=== PATIENT | male | born 1950 | race Caucasian/White ===

== ENCOUNTER → 2016-03-22 | Outpatient (CLI) | payer OTHER ==
[~2016-03-22] MED LIST: ACCUNEB0.63 MG/3 INH; ACETAMINOPHEN-1 EAC1 PO; ACETAMINOPHEN325 M1 PO; ADVAIR 500-501 EACH INH; ALBUTEROL INH INH; ALBUTEROL NEB; ALBUTEROL2.5 MG/0.1 INH; ALBUTEROL2.5 MG/3 M INH; ALBUTEROL2.5 MG/31 INH; ALENDRONATE SOD70 MG PO; ALLOPURINOL 10100 M1 PO; ALLOPURINOL 30300 M1 PO; ALLOPURINOL 30300 M3 PO; ASMANEX INH; ASMANEX0.24 G1 IH; ASMANEX220 MC2 IH; AUGMENTIN 875-1 EACH PO; AUGMENTIN 875875 MG PO; CALCIUM 600 +1 EAC1 PO; CALCIUM OR; CARDIZEM CD 18180 M3 PO; CARDIZEM CD180 MG PO; CARDIZEM CD360 MG PO; CHERATUSSIN AC S5 ML PO; CIPRO OR; CIPROFLOXACIN500 M3 PO; CLARITIN10 MG PO; COLACE100 MG PO; COUMADIN 10MG T10 M1 OR; COUMADIN 10MG T10 M1 PO; COUMADIN 1MG TAB1 M1 PO; COUMADIN 2 MG TA2 M1 PO; COUMADIN 3 MG TA3 MG PO; COUMADIN 5 MG TA5 M1 OR; COUMADIN OR; COUMADIN PO; CYCLOBENZAPRINE10 MG PO; DALIRESP500 MCG PO; DILTIAZEM 24HR240 MG PO; DILTIAZEM ER240 M1 PO; ECONAZOLE TP; ELEMENTAL CALC600 MG PO; EPIPEN 2-P0.3 MG/0.3 IM; EPIPEN0.3 MG/0.3; FIBERCON CHEWA625 MG PO; FIBERCON625 M1 PO; FLAGYL500 MG PO; FLEXERIL PO; FLONASE16 GM NASAL; FOSAMAX 70 MG T70 M1 PO; FOSAMAX 70 MG T70 MG PO; FUROSEMIDE 20 M20 M1 PO; FUROSEMIDE 40 M40 M1 PO; GENTAMICIN 0.1%15 G2; HYDROCODON-ACE1 EAC8 PO; HYDROCODONE-AP1 EAC6 PO; HYDROCODONE-APA1 TA1 PO; IBUPROFEN 200200 M1 PO; JANTOVEN1 MG PO; K-DUR 20 MEQ T20 MEQ PO; K-DUR10 ME1 PO; KEFLEX500 MG PO; KETOCONAZOLE60 GM; KLOR-CON 10 ER10 MEQ PO; KLOR-CON 1010 MEQ PO; LASIX 20 MG TAB20 MG PO; LASIX 40 MG TAB40 M1 PO; LASIX 40 MG TAB40 M2 PO; LEVAQUIN 500 M500 M2 PO; LEVAQUIN 750 M750 MG PO; LOVENOX SC; LOVENOX SQ; METFORMIN HCL500 MG PO; MIRALAX17 GM PO; MUCINEX TA600 MG/TA1 PO; MUCINEX600 MG PO; MUCUS RELIEF C400 MG PO; MUCUS RELIEF600 MG PO; NORCO 5-325 TA1 EACH PO; NOVOLIN N100 UNIT/3 SUBQ; NOVOLOG100 UNIT/1 SUBQ; NYSTATIN 1100000 U/M SW&SWALLOW; NYSTATIN1 EA10 TOP; OMEPRAZOLE20 M2 PO; OXYCODONE HCL 55 MG PO; PERCOCET; PERCOCET 5-3251 EACH PO; POTASSIUM20 OR; POTASSIUM20 PO; PREDNISONE 10 M10 M1 PO; PREDNISONE 10 M10 MG PO; PREDNISONE 20 M20 M1 PO; PREDNISONE 20 M20 MG PO; PREDNISONE 5 MG5 M1 PO; PREDNISONE OR; PREVACID 30MG C30 M1 PO; PROAIR HFA8.5 GM INH; PROVENTIL HFA6.7 G1 IH; PROVENTIL HFA6.7 G1 INH; QVAR HFA 880 MCG/UN1; QVAR HFA 880 MCG/UN1 INH; ROXICODONE5 M2 PO; SANTYL OINTMENT30 G1; SENNA8.6 MG PO; SINGULAIR 10 MG10 M1 PO; SPIRIVA INH; SPIRIVA18 MCG INH; SYMBICORT160 MCG/4. INH; TAMSULOSIN HCL0.4 M1 PO; TAMSULOSIN HCL0.4 MG PO; TERBINAFINE HC250 MG PO; THEO-24300 MG PO; THEOPHYLLINE S300 MG PO; TRAMADOL 50 MG50 MG PO; UNIPHYL400 MG PO; VITAMIN D 5050000 I1 PO; VITAMIN D1000 UNI1 PO; XARELTO20 MG PO; XOLAIR; XOLAIR SUBQ; ZOFRAN ODT4 MG PO; ZPAK PO; xolair IJ
--- NOTE | ~2016-03-22 | S ---
[facility] [place] [address] SURGICAL PATH RPT PROCEDURE Name: ROOSEVELT CASEY JR Room #: REG BASILIO Aiken#: [id number] Admission: 03/22/16 Date of : 52 Discharge: Report #: [id number] Path Case #: [id number] PATHOLOGY REPORT COLLECTION DATE: 03/22/2016 RECEIVED DATE: 03/22/2016 SUBMITTING PHYS: Dr. Phil Alex OTHER PHYS: Dr. Henrry Rayo SPECIMEN(S) RECEIVED: A.Polyp at distal transverse B.Polyp at 60 cm C.Polyp at 50 cm x2 D.Polyp at 40 cm * * * * * * * * * * * * FINAL DIAGNOSIS: A. Polyp, distal transverse, endoscopic biopsy: - Tubular adenoma. - Negative for high-grade dysplasia. B. Polyp, at 60 cm, endoscopic biopsy: - Hyperplastic polyp. - Negative for dysplasia. C. Polyp x 2, at 50 cm, endoscopic biopsy: - Multiple fragments showing tubular adenoma. - Negative for high-grade dysplasia. D. Polyp, at 40 cm, endoscopic biopsy: - Tubular adenoma. - Negative for high-grade dysplasia. (IUV:mgr; d/t: 03/23/16) PATHOLOGIST: Gracie Maldonado M.D. REPORT ELECTRONICALLY SIGNED BY: Gracie Maldonado M.D. DATE/TIME: 03/23/2016 16:45 * * * * * * * * * * * * GROSS PATHOLOGY: A. Received in formalin labeled "Roosevelt Casey Jr., polyp at distal transverse," is a segment of hernandez soft tissue measuring 0.4 cm in maximum dimension. The specimen is submitted entirely in cassette A1. B. Received in formalin labeled "Roosevelt Casey Jr., polyp at 60 cm," are two segments of hernandez soft tissue measuring 0.6 x 0.5 x 0.1 cm in aggregate dimensions and ranging from 0.3 to 0.5 cm in maximum dimension. The specimen is submitted entirely in cassette B1. C. Received in formalin labeled "Roosevelt Casey Jr., polyp at 50 cm 2," are three segments of hernandez soft tissue measuring 0.6 x 0.[address] [address] SURGICAL PATH RPT PROCEDURE Name: ROOSEVELT CASEY Room #: REG [facility]#: [id number] Admission: 03/22/16 Date of : 52 Discharge: Report #: [id number] Path Case #: [id number] cm in aggregate dimensions and ranging from 0.2 to 0.5 cm in maximum dimension. The specimen is submitted entirely in cassette C1. D. Received in formalin labeled "Roosevelt Casey Jr., polyp at 40 cm," is a segment of hernandez soft tissue measuring 0.5 cm in maximum dimension. The specimen is submitted entirely in cassette D1. (CAA; 03/22/2016) CLINICAL HISTORY: History of polyps INITIAL CPT CODE(S): A; 49463 B; 51861 C; 57864 D; 74178 Professional services performed by [facility] at [facility] [address], [place] [address] Technical services performed by [facility] at [address] [place] [address], [address], [place] [address]. [facility] [address] [place] [address] PHONE: [phone] DIRECTOR: Adriel Santillan M.D. * * * END OF REPORT * * *
--- NOTE | ~2016-03-22 | P ---
[facility] [place] [address] PROCEDURE REPORT Name: OTF PEÑA [id number] Admission: 03/22/16 Attend Phys: Phil Alex MD Discharge: Date of : 52 Report #: [id number] THIS REPORT FOR: //name// CC: Phli Rayo MD BRIEF HISTORY: The patient is a 65-year-old male with history of multiple colon adenomas. Last colonoscopy was about a year ago, at which time multiple small adenomas were removed. It is noted that he did have a tubulovillous adenoma removed at 40 cm in November 2013, with multifocal high-grade dysplasia. PREOPERATIVE DIAGNOSES: History of colon polyps and advanced adenoma with multifocal high-grade dysplasia. POSTOPERATIVE DIAGNOSES: 1. Diminutive polyp in distal transverse colon. 2. Diminutive polyp at 60 cm. 3. Diminutive polyps times 2 at 50 cm. 4. Diminutive polyp at 40 cm. 5. Moderate diverticulosis coli, greater left colon than right colon. 6. Internal hemorrhoids. 7. Old tattoos at 40 and 60 cm. MEDICATIONS: Deep sedation with propofol per anesthesia. SPECIMENS: 1. Diminutive polyp, transverse colon. 2. Diminutive polyps, 60 cm. 3. Diminutive polyps times 2 at 50 cm. 4. Diminutive polyp at 40 cm. ESTIMATED BLOOD LOSS: 3 mL. PROCEDURE: Colonoscopy to cecum and terminal ileum with biopsy. FINDINGS: Prior to propofol sedation, procedure of colonoscopy discussed with the patient as well as potential risks, benefits, and complications. He indicates he understands and desires to proceed. With the patient in left lateral decubitus position, digital examination was completed, which revealed no abnormalities. Subsequently, the [place] video colonoscope was introduced into the rectum, advanced under direct vision to the cecum. Done with some difficulty tortuous redundant colon. Cecum was reached, identified by the ileocecal valve and the appendiceal orifice. I was able to visualize the distal segment of terminal ileum, which was inspected and noted to be unremarkable. At that point, the scope was slowly withdrawn and [facility] [address] [place] [address] PROCEDURE REPORT Name: OTF PEÑA Room #: REG [facility]#: [id number] Admission: 03/22/16 Attend Phys: Phil Alex MD Discharge: Date of : 52 Report #: [id number] careful circumferential views obtained. Upon slow withdrawal of the scope, the prep was noted to be good. The mucosa was within normal limits, normal vascular pattern, and normal light reflex. As we withdrew the scope, there were a few scattered diverticula in proximal colon, but no endoscopic evidence of diverticulitis. In the distal transverse colon, a diminutive polyp was seen and removed by biopsy. Scope was further withdrawn and tattoo parker were found at 60 cm. No residual polyp was seen at the tattoo sites. As we withdrew the scope, diminutive polyp was seen. However, this diminutive polyp was felt to be was not in the vicinity of the tattoos and was felt to represent new polyps rather than residual polyps. Scope was further withdrawn and at 50 cm, 2 diminutive polyps were seen and removed by biopsy. At 40 cm, another tattoo oniel was seen. In that region, another diminutive polyp was seen and removed by biopsy. Once again, this polyp was not associated with a tattoo and felt to represent a new polypoid lesion. The scope was further withdrawn and there was noted to be moderately severe diverticular disease without endoscopic evidence of diverticulitis. Scope was withdrawn in the rectum. Upon retroflexion, small hemorrhoids and tags were seen. Scope was withdrawn. The patient tolerated the procedure well. CONDITION OF THE PATIENT UPON DISCHARGE: Following procedure, the patient drowsy, aroused, conversant and will be discharged home when fully ambulatory. INSTRUCTIONS TO THE PATIENT AND FAMILY AT THE TIME OF DISCHARGE: Multiple polyps identified and removed as described above. We will follow up on the path and make further recommendations. However, at this point, I think it would be reasonable have him return in 2 years due to a large number of adenomas and his advance adenoma. In addition, there was no residual polyp identified at the site in particular the tattoo site at 40 cm. He will return to care of Dr. Henrry Rayo, return to see me as needed. Last colonoscopy was 1 year ago. <ELECTRONICALLY SIGNED> By: Phil Alex MD 03/25/16 1104 0934 1006 Phil Alex MD /nt
== END | disposition home or self-care (01) ==
LOC: GI 03:08
DX: D12.3 Benign neoplasm of transverse colon (principal); D12.4 Benign neoplasm of descending colon; D12.5 Benign neoplasm of sigmoid colon; K57.30 Diverticulosis of large intestine without perforation or abscess without bleeding; K64.8 Other hemorrhoids
CPT/HCPCS: 62110; 62900

== ENCOUNTER 2016-08-06 19:17 | Inpatient (IN) | payer OTHER ==
[~2016-08-06] VITALS: Ht 180.3 cm; Wt 144.2 kg
--- NOTE | ~2016-08-06 | EKG ---
[place] [address] [facility] [place] [address] ELECTROCARDIOGRAM REPORT Name: OTF PEÑA Room #: 307-P ADM IN M.R.#: [id number] Admission: 08/06/16 Attend Phys: Vicki Nevarez Discharge: Date of : 52 Report #: [id number] THIS REPORT FOR: //name// [facility] ED Test Date: 2016-08-06 Test Time: 19:43:24 Pat Name: OTF PEÑA Department: Room: [facility] Gender: M Bicycle Service Technician: [id number] : 1950 Requested By: Siddhartha Parham Order Number: [id number] MD: Alexander West Measurements Intervals [place] Rate: 97 P: 55 VA: 167 QRS: -72 QRSD: 155 T: 34 QT: 380 QTc: 483 Interpretive Statements Sinus rhythm RBBB and LAFB Baseline wander in lead(s) V1 Compared to ECG 01/25/2015 15:41:24 No significant change was found Electronically Signed On 08-07-2016 8:09:23 CDT by Alexander West [email or web address] <ELECTRONICALLY SIGNED> By: Alexander West MD, [facility] 08/07/16 0809 42 42 Alexander West MD, [facility] /EPI
[~2016-08-06 19:17] MED LIST changes: +ECONAZOLE 1% CR30 G1 TOP
[2016-08-06 19:18] VITALS: BP 155/92
[2016-08-06] MEDS ORDERED: AZITHROMYCIN 2250 MG PO (19:23)
[2016-08-06] MEDS ORDERED: PULMICORT0.5 MG/22 INH (19:24)
[2016-08-06] MEDS ORDERED: POTASSIUM20 PO (19:26)
[2016-08-06 19:50] LABS: HEMATOCRIT 42.3 % (42.0-52.0); HEMOGLOBIN 14.3 gm/dL (14.0-18.0); MCH 29.4 pg (26.0-34.0); MCHC 33.7 g/dL (28.0-37.0); MCV 87.1 fL (80.0-100.0); PLATELET COUNT 204 thou/uL (150-400); RBC 4.86 mil/uL (4.50-6.00); RDW 15.3 % (10.5-14.5); WBC 10.8 thou/uL (4.0-11.0)
[2016-08-06 19:51] LABS: MANUAL DIFF YES
[2016-08-06 20:00] LABS: CALCIUM 9.2 mg/dL (8.5-10.1); CREATININE 0.7 mg/dL (0.7-1.3); POTASSIUM 4.2 mmol/L (3.5-5.1)
[2016-08-06 20:03] LABS: ABG SAMPLE TYPE ARTERIAL; BE(vivo) 3.4 mmol/L (-2 to +3); HCO3 28.9 mmol/L (22.0-26.0); LACTATE 1.27 mmol/L (0.5-2.0); O2(CT) 20.9 mL/dL (15.0-23.0); O2Hb 94.7 % (92.0-98.0); PCO2 46.8 mmHg (35.0-45.0); PO2 79.6 mmHg (80.0-100.0); pH 7.409 (7.360-7.450); sO2 95.8 % (92.0-98.0); tCO2 30.4 mmol/L (24.0-30.0)
[2016-08-06 20:04] LABS: ALBUMIN 3.3 g/dL (3.4-5.0); DIRECT BILIRUBIN 0.1 mg/dL (<0.1-0.3); TOTAL BILIRUBIN 0.6 mg/dL (<0.1-1.0); TOTAL PROTEIN 6.5 g/dL (6.4-8.2)
[2016-08-06 20:05] LABS: STICK SITE R.RADIAL
[2016-08-06 20:13] LABS: NT-PRO BRAIN NAT PEPTIDE 28 pg/mL (<300); TROPONIN-I < 0.04 ng/mL (<0.04-0.07)
[2016-08-06 20:24] LABS: ABSOLUTE NEUTROPHILS 9.3 thou/uL (1.4-8.2); ANISOCYTOSIS 1+; TOTAL CELL COUNT 100
[2016-08-06 21:26] VITALS: BP 143/82
[2016-08-06 22:30] VITALS: BP 123/90
[2016-08-07] MEDS ORDERED: METFORMIN HCL500 MG PO (02:01)
[2016-08-07 03:05] VITALS: BP 119/81
[2016-08-07 07:45] VITALS: BP 140/75
[2016-08-07 16:00] VITALS: BP 129/74
[2016-08-07 20:00] VITALS: BP 134/71
[2016-08-08 04:00] VITALS: BP 150/92
[2016-08-08 07:04] LABS: ALBUMIN 2.9 g/dL (3.4-5.0); CALCIUM 8.7 mg/dL (8.5-10.1); CREATININE 0.6 mg/dL (0.7-1.3); MAGNESIUM 1.8 mg/dL (1.8-2.4); POTASSIUM 3.7 mmol/L (3.5-5.1); TOTAL BILIRUBIN 0.4 mg/dL (<0.1-1.0); TOTAL PROTEIN 6.5 g/dL (6.4-8.2)
[2016-08-08 07:59] VITALS: BP 155/81
[2016-08-08] MEDS ORDERED: FLUCONAZOLE 10100 MG PO (08:42)
[2016-08-08 09:58] VITALS: BP 155/81
== END 2016-08-08 14:00 | disposition home or self-care (01) | DRG 392 ==
LOC: ER 19:17 → EROBS 20:51 → 3N 20:51
PROVIDERS: Hospitalist; Nurse Practitioner
DX: K52.9 Noninfective gastroenteritis and colitis, unspecified (principal); J44.1 Chronic obstructive pulmonary disease with (acute) exacerbation; J96.11 Chronic respiratory failure with hypoxia; Z68.41 Body mass index [BMI] 40.0-44.9, adult; I10 Essential (primary) hypertension; M19.90 Unspecified osteoarthritis, unspecified site; M79.3 Panniculitis, unspecified; E11.9 Type 2 diabetes mellitus without complications; E86.1 Hypovolemia; E66.01 Morbid (severe) obesity due to excess calories; Z82.5 Family history of asthma and other chronic lower respiratory diseases; Z90.49 Acquired absence of other specified parts of digestive tract; Z86.711 Personal history of pulmonary embolism; Z87.01 Personal history of pneumonia (recurrent); Z98.42 Cataract extraction status, left eye; Z87.81 Personal history of (healed) traumatic fracture; Z79.899 Other long term (current) drug therapy
CPT/HCPCS: 10096

== ENCOUNTER 2017-02-09 07:52 | Inpatient (IN) | payer OTHER ==
[~2017-02-09] VITALS: Ht 9 cm; Wt 152.0 kg
[2017-02-09] VITALS (12 sets, daily range): BP systolic 118–159; BP diastolic 68–93
--- NOTE | ~2017-02-09 | HC ---
[facility] [place] [address] CONSULTATION Name: OTF PEÑA Room #: 245-P ADM IN M.R.#: [id number] Admission: 02/09/17 Attend Phys: Vicki Nevarez Discharge: Date of : 52 Report #: [id number] THIS REPORT FOR: //name// CC: Vicki Rayo DATE OF SERVICE: 02/09/2017 ATTENDING PHYSICIAN: Vicki Nevarez MD CONSULTING PHYSICIAN: Henrry Rayo MD REASON FOR CONSULTATION: Abdominal pain. HISTORY OF PRESENT ILLNESS: This is a 66-year-old male patient known to our service from previous bowel obstructions. He was seen in the [place] emergency room with complaints of abdominal pain, nausea, vomiting and diarrhea starting this morning. He underwent a CT of the abdomen and pelvis, which revealed diffuse fluid throughout the small-bowel with dilatation of the distal small bowel measuring 3.7 cm in size, consistent with a distal mechanical small-bowel obstruction. CT scan approximately 6 months ago showed this same bowel to measure 2.5 cm in size. Fluid also filled the ascending and transverse colon. In addition to this, marked edema was seen over the lower anterior right abdominal wall soft tissue, likely cellulitis, no hernia was identified. I was called to see the patient when he had been admitted to the regular floor; however, he had some respiratory difficulty and was transferred to the intensive care unit where he is now being seen. A nasogastric tube has been placed with drainage of 250 mL of enteric content. The patient reports feeling slightly better since placement of the tube. PAST MEDICAL HISTORY: Significant for COPD, asthma, history of DVT and bilateral pulmonary emboli, status post IVC filter placement, history of hypertension, gout, type 2 diabetes mellitus, morbid obesity, previous bowel obstructions. PAST SURGICAL HISTORY: Includes panniculectomy, open primary ventral hernia repair in 2005, laparoscopic cholecystectomy in 2008, repair of recurrent incisional ventral hernia in 2008, and laparoscopic repair of recurrent incisional ventral hernia with [employer] Mesh in 2009. HOME MEDICATIONS: Include Glucophage, Flonase, guaifenesin, alendronate, vitamin D, Zyloprim, prednisone 10 mg, budesonide, K-Dur, albuterol, ProAir, Xarelto, theophylline, Spiriva, diltiazem, Lasix, hydrocodone 7.5 mg, and Diflucan. Please see electronic medical record for dosing details. ALLERGIES: No known drug allergies. [address] [address] CONSULTATION Name: OTF PEÑA Room #: 245-P [facility] IN .R.#: [id number] Admission: 02/09/17 Attend Phys: Vicki Nevarez Discharge: Date of : 52 Report #: [id number] FAMILY HISTORY: Significant for COPD, otherwise noncontributory to this hospitalization. SOCIAL HISTORY: The patient denies use of tobacco or illicit drugs. He drinks alcohol socially and lives at home alone. REVIEW OF SYSTEMS: As per history of present illness, in addition, GENERAL: The patient denies unintentional weight loss. Denies fever or chills. HEENT: Denies changes in taste, vision, hearing, or smell. RESPIRATORY: Reports shortness of breath, has a history of COPD and asthma. CARDIOVASCULAR: Denies chest pain or palpitations. GASTROINTESTINAL: As per history of present illness. Denies bright red blood per rectum. GENITOURINARY: Denies dysuria, urgency, or increased urinary frequency. Denies hematuria. MUSCULOSKELETAL: Denies myalgia. Complains of arthralgia and arthritis. NEUROLOGIC: Denies headaches, numbness, or tingling. PSYCHIATRIC: Denies depression, anxiety or suicidal ideations. SKIN AND INTEGUMENTARY: Denies new skin lesions, rashes, or moles. ENDOCRINE: Denies polydipsia, polyuria, heat, or cold intolerance. HEMATOLOGIC: Reports easy bleeding and bruising while on Xarelto. All other review of systems is negative. PHYSICAL EXAMINATION: VITAL SIGNS: Temperature 99.6, T-max 102.3 at noon today, most recent blood pressure 127/88, pulse 109, respirations 26, all at noon today. GENERAL: This is a super morbidly obese 66-year-old male patient, in no acute distress. HEENT: Atraumatic, normocephalic with moist mucosal membranes. A nasogastric tube is present. He has no scleral icterus. NECK: Supple, no appreciable lymphadenopathy. Trachea is midline. CHEST: Coarse bilaterally. CARDIOVASCULAR: Sinus tachycardia. S1 and S2. ABDOMEN: Obese, soft and tender to palpation with no rebound or guarding. He has a slightly increased warmth overlying the right abdomen. No appreciable hernias. Surgical scars are well healed. GENITOURINARY: Normal external male genitalia. EXTREMITIES: No clubbing or cyanosis. NEUROLOGIC: Cranial nerves 2-12 are grossly intact. PSYCHIATRIC: Normal mood and affect. SKIN AND INTEGUMENTARY: No rashes or significant lesions are seen. LABORATORY DATA: CBC from earlier today shows a white blood cell count of 11.9 (13.7 at admission), hemoglobin 13.2, hematocrit 41.7, and platelets 195. Admission lactate was 2.1, down to 0.5. Electrolytes show sodium 143, potassium [address] [address] CONSULTATION Name: OTF PEÑA Room #: 245-P ADM IN .R.#: [id number] Admission: 02/09/17 Attend Phys: Vicki Nevarez Discharge: Date of : 52 Report #: [id number] 3.7, chloride 105, CO2 of 31, BUN 22, creatinine 0.8 and glucose 111 with normal liver function tests and a normal lipase. INR was 1.1. RADIOLOGIC STUDIES: CT of the abdomen and pelvis with IV contrast, findings are as noted above. Additional findings on his CT scan are dilatation of the intrahepatic biliary tree and extrahepatic bile ducts to 2.2 cm with the distal duct gradually diminishing in caliber to normal size at the ampulla. IMPRESSION AND PLAN: This is a 66-year-old super morbidly obese male patient with a history of chronic obstructive pulmonary disease, hypertension and venous thromboembolism with bilateral pulmonary emboli who has abdominal pain, nausea, vomiting and diarrhea. His radiographic studies showed changes consistent with a distal mechanical small-bowel obstruction. We discussed the pathophysiology and natural history of small-bowel obstructions as well as treatment alternatives and surgical options. The patient would benefit from ongoing conservative treatment with nasogastric decompression, bowel rest, and IV fluid resuscitation. He will be followed with serial abdominal exams as well as labs and x-rays as necessary. The CT report recommended abdominal ultrasound for evaluation of the biliary tree; however, the patient has undergone previous cholecystectomy and he may benefit from an MRCP or CT with pancreatic protocol to further evaluate his biliary tree. Continue current supportive care and we will follow along with you. I sincerely appreciate the opportunity to participate in the care of this patient and we will leave further recommendations and orders in the electronic medical record as appropriate. Thank you very much. <ELECTRONICALLY SIGNED> By: Doyle Aaron MD, FACS 02/10/17 1339 1746 1914 Doyle Aaron MD, FACS /nt
--- NOTE | ~2017-02-09 | HC ---
[facility] [place] [address] CONSULTATION Name: OTF PEÑA Room #: 213-P ADM IN M.R.#: [id number] Admission: 02/09/17 Attend Phys: Vicki Nevarez Discharge: Date of : 51 Report #: [id number] THIS REPORT FOR: //name// CC: Vicki Caldwellhen Girma DATE OF SERVICE: 02/13/2017 HISTORY OF PRESENT ILLNESS: The patient is a 66-year-old white male, originally admitted with vomiting and diarrhea. He was noted to have an adynamic ileus, respiratory failure acute on chronic with cellulitis, panniculitis. He has been followed by his Surgery without intervention. He had an NG tube that has been removed. He was noted to have a small bowel obstruction. He had an asthma with exacerbation that is improving and his acute on chronic hypoxic hypercapnic respiratory failure is improving as well. He was diagnosed with gastroenteritis. He has medical complexity with generalized debilitation and we are seeing him in rehabilitation medicine consultation. PAST MEDICAL HISTORY: Includes morbid obesity, hypertension, severe bronchitis, COPD 3 liters at home, IVC filter, laparoscopic cholecystectomy, bilateral pulmonary emboli, pneumonia, and torn right rotator cuff without surgery. MEDICATIONS: Please see the full medication listing. ALLERGIES: No known drug allergies. HABITS: No history of tobacco or alcohol abuse. SOCIAL HISTORY: House alone, has a ramp, uses a walker, uses his oxygen, has a sister and niece that are involved with cleaning. He goes out into the community, where he typically takes one of the scooters when he is in a store. REVIEW OF SYSTEMS: No current complaints of chest pain, shortness of breath, or abdominal discomfort. No focal extremity pain complaints. PHYSICAL EXAMINATION: GENERAL: A 66-year-old morbidly obese, pleasant white male, no obvious distress. VITAL SIGNS: Temperature 97.4, pulse 65, respirations 18, blood pressure 128/76. Last recorded height was 5 feet 9 inches, weight 335 pounds. HEENT: Appeared to be benign. EXTREMITIES: Functional range of motion of both upper extremities with strength grade 4/5. Lower extremities, no focal calf swelling, functional range of motion with strength grade 4- to 3+. His transfers, sit to stand is contact guard. He ambulated 5 steps contact guard with a front-wheeled walker. [address] [address] CONSULTATION Name: MARIANAOTF BASHIR Room #: 213-P [facility] IN M.R.#: [id number] Admission: 02/09/17 Attend Phys: Vicki Nevarez Discharge: Date of : 52 Report #: [id number] ASSESSMENT: A 66-year-old white male with the following problem list: 1. Small bowel obstruction, being managed conservatively. 2. Acute on chronic hypoxic hypercapnic respiratory failure. 3. Asthma exacerbation. 4. Gastroenteritis. 5. History of deep venous thrombosis, status post IVC filter. 6. History of atrial fibrillation. 7. Morbid obesity. 8. Cellulitis with ____. PLAN: He is hoping to return directly home. I encouraged him to continue working in therapies to try to further improve his strength and endurance. He will certainly need at least home health care. At this point, we will follow along with you regarding his rehab therapy needs as he further medically stabilizes. Thank you for asking us to assist in this patient's care. By: 1436 2326 Sim Vicente MD /
--- NOTE | ~2017-02-09 | EKG ---
[address] [place] [address] ELECTROCARDIOGRAM REPORT Name: OTF PEÑA Room #: 245- ADM IN M.R.#: [id number] Admission: 02/09/17 Attend Phys: Vicki Nevarez Discharge: Date of : 52 Report #: [id number] THIS REPORT FOR: //name// [facility] Test Date: 2017-02-10 Test Time: 17:05:24 Pat Name: OTF PEÑA Department: Room: [facility] Gender: M Cable Dispatcher: [facility] : 1950 Requested By: Ramu Henson Order Number: [id number] MD: Alfredo Stanford Measurements Intervals [place] Rate: 97 P: 59 VA: 161 QRS: -72 QRSD: 158 T: 69 QT: 381 QTc: 484 Interpretive Statements Sinus rhythm RBBB and LAFB Probable left ventricular hypertrophy Baseline wander in lead(s) V1 Compared to ECG 10/25/2016 14:28:02 No significant changes Electronically Signed On 02-10-2017 18:03:10 PAGE TECHNICIAN by Alfredo Stanford [email or web address] <ELECTRONICALLY SIGNED> By: Alfredo Stanford MD 02/10/17 1803 170 04 Alfredo Stanford MD /EPI
[~2017-02-09 07:52] MED LIST changes: +AZITHROMYCIN 2250 MG PO; +FLUCONAZOLE 10100 MG PO; +PULMICORT0.5 MG/22 INH; +VENTOLIN HFA 1818 GM INH
[2017-02-09 08:30] LABS: HEMATOCRIT 45.5 % (42.0-52.0); HEMOGLOBIN 14.6 gm/dL (14.0-18.0); MCH 28.5 pg (26.0-34.0); MCHC 32.1 g/dL (28.0-37.0); MCV 88.9 fL (80.0-100.0); RBC 5.11 mil/uL (4.50-6.00); RDW 15.3 % (10.5-14.5); WBC 13.7 thou/uL (4.0-11.0)
[2017-02-09 08:39] LABS: CALCIUM 9.4 mg/dL (8.5-10.1); CREATININE 0.8 mg/dL (0.7-1.3); POTASSIUM 3.7 mmol/L (3.5-5.1)
[2017-02-09 08:45] LABS: ALBUMIN 3.2 g/dL (3.4-5.0); TOTAL BILIRUBIN 0.6 mg/dL (<0.1-1.0); TOTAL PROTEIN 6.8 g/dL (6.4-8.2)
[2017-02-09 14:09] LABS: ABG SAMPLE TYPE ARTERIAL; BE(vivo) 1.7 mmol/L (-2 to +3); HCO3 28.7 mmol/L (22.0-26.0); LACTATE 1.41 mmol/L (0.5-2.0); O2(CT) 19.8 mL/dL (15.0-23.0); O2Hb 93.1 % (92.0-98.0); PCO2 54.4 mmHg (35.0-45.0); PO2 71.5 mmHg (80.0-100.0); sO2 93.2 % (92.0-98.0); tCO2 30.4 mmol/L (24.0-30.0)
[2017-02-09 14:11] LABS: STICK SITE L.RADIAL
[2017-02-09 17:09] LABS: HEMATOCRIT 41.7 % (42.0-52.0); HEMOGLOBIN 13.2 gm/dL (14.0-18.0); MCH 28.5 pg (26.0-34.0); MCHC 31.8 g/dL (28.0-37.0); MCV 89.7 fL (80.0-100.0); RBC 4.64 mil/uL (4.50-6.00); RDW 15.4 % (10.5-14.5); WBC 11.9 thou/uL (4.0-11.0)
[2017-02-09 17:22] LABS: INR 1.1; PROTIME 11.7 Seconds (9.3-11.4)
[2017-02-09 18:14] LABS: URINE BILIRUBIN 1+ (Negative); URINE BLOOD 3+ (Negative); URINE GLUCOSE-RANDOM* NEGATIVE (Negative); URINE KETONES NEGATIVE (Negative); URINE PROTEIN (DIPSTICK) 2+ (Negative); URINE SPECIFIC GRAVITY 1.015 (1.003-1.035); URINE UROBILINOGEN 0.2 E.U./dl (0.2-1.0)
[2017-02-09 18:16] LABS: ICTOTEST (BILI CONFIRMATORY) Negative (Negative); URINE COLOR DARK YELLOW; URINE LEUKOCYTES-REFLEX TRACE (Negative)
[2017-02-09 18:22] LABS: CASTS None Seen /LPF (None Seen); CRYSTALS None Seen /LPF (None Seen); SQUAMOUS None Seen /LPF (0-3); URINE RBC >20 Many /HPF (0-2)
[2017-02-09 18:23] LABS: URINE WBC-REFLEX 0-5 Rare /HPF (0-5)
[2017-02-10] VITALS (23 sets, daily range): BP systolic 124–167; BP diastolic 55–95
[2017-02-10 05:14] LABS: ABG SAMPLE TYPE ARTERIAL; BE(vivo) 2.6 mmol/L (-2 to +3); LACTATE 0.72 mmol/L (0.5-2.0); O2(CT) 18.4 mL/dL (15.0-23.0); O2Hb 94.7 % (92.0-98.0); PCO2 58.6 mmHg (35.0-45.0); PO2 83.3 mmHg (80.0-100.0); sO2 95.3 % (92.0-98.0); tCO2 31.8 mmol/L (24.0-30.0)
[2017-02-10 05:15] LABS: STICK SITE L.RADIAL; pH 7.327 (7.360-7.450)
[2017-02-10 05:16] LABS: Pressure Support 6 cm H20
[2017-02-10 05:18] LABS: ABSOLUTE NEUTROPHILS 7.2 thou/uL (1.4-8.2); BASOPHILS 0.3 % (0.0-2.0); EOSINOPHILS 5.1 % (0.0-3.0); HEMATOCRIT 40.6 % (42.0-52.0); LYMPHOCYTES 10.7 % (24.0-44.0); MCH 28.8 pg (26.0-34.0); MCV 89.9 fL (80.0-100.0); MONOCYTES 10.5 % (1.0-8.0); PLATELET COUNT 178 thou/uL (150-400); POLYS 73.4 % (36.0-66.0); RBC 4.52 mil/uL (4.50-6.00); RDW 16.1 % (10.5-14.5); WBC 9.8 thou/uL (4.0-11.0)
[2017-02-10 05:22] LABS: MANUAL DIFF NO
[2017-02-10 05:33] LABS: ALBUMIN 2.4 g/dL (3.4-5.0); CALCIUM 7.7 mg/dL (8.5-10.1); CREATININE 0.6 mg/dL (0.7-1.3); POTASSIUM 3.5 mmol/L (3.5-5.1); TOTAL BILIRUBIN 0.7 mg/dL (<0.1-1.0); TOTAL PROTEIN 5.2 g/dL (6.4-8.2)
[2017-02-11] VITALS (22 sets, daily range): BP systolic 112–157; BP diastolic 66–92
[2017-02-11 05:32] LABS: HEMATOCRIT 42.2 % (42.0-52.0); HEMOGLOBIN 13.5 gm/dL (14.0-18.0); MANUAL DIFF YES; MCH 28.5 pg (26.0-34.0); PLATELET COUNT 174 thou/uL (150-400); RBC 4.74 mil/uL (4.50-6.00); RDW 15.5 % (10.5-14.5); WBC 8.8 thou/uL (4.0-11.0)
[2017-02-11 05:48] LABS: ALBUMIN 2.3 g/dL (3.4-5.0); CALCIUM 8.3 mg/dL (8.5-10.1); CREATININE 0.7 mg/dL (0.7-1.3); PHOSPHORUS 4.3 mg/dL (2.5-4.9)
[2017-02-11 06:07] LABS: ABSOLUTE NEUTROPHILS 8.1 thou/uL (1.4-8.2); ANISOCYTOSIS SLIGHT; TOTAL CELL COUNT 100
[2017-02-11 09:00] LABS: ABG SAMPLE TYPE ARTERIAL; BE(vivo) 1.9 mmol/L (-2 to +3); HCO3 30.1 mmol/L (22.0-26.0); PCO2 63.1 mmHg (35.0-45.0); PO2 86.4 mmHg (80.0-100.0); STICK SITE L.RADIAL; tCO2 32.1 mmol/L (24.0-30.0)
[2017-02-11 09:01] LABS: FIO2 35 %; LACTATE 1.33 mmol/L (0.5-2.0); Pressure Support 14 cm H20; sO2 95.3 % (92.0-98.0)
[2017-02-12] VITALS (17 sets, daily range): BP systolic 110–154; BP diastolic 66–94
[2017-02-12 05:09] LABS: HEMATOCRIT 38.5 % (42.0-52.0); HEMOGLOBIN 12.3 gm/dL (14.0-18.0); MCH 28.2 pg (26.0-34.0); MCHC 31.8 g/dL (28.0-37.0); MCV 88.5 fL (80.0-100.0); RBC 4.35 mil/uL (4.50-6.00); RDW 15.1 % (10.5-14.5); WBC 12.1 thou/uL (4.0-11.0)
[2017-02-12 05:25] LABS: ALBUMIN 2.2 g/dL (3.4-5.0); CREATININE 0.5 mg/dL (0.7-1.3); PHOSPHORUS 2.2 mg/dL (2.5-4.9); POTASSIUM 3.8 mmol/L (3.5-5.1)
[2017-02-12 23:08] LABS: INFLUENZA B Negative (Negative); METAPNEUMOVIRUS Negative (Negative)
[2017-02-13 00:13] VITALS: BP 130/77
[2017-02-13 03:15] VITALS: BP 138/91
[2017-02-13 07:59] VITALS: BP 130/86
[2017-02-13 11:10] VITALS: BP 128/76
[2017-02-13 15:20] VITALS: BP 133/72
[2017-02-13 20:15] VITALS: BP 140/75
[2017-02-14 04:00] VITALS: BP 102/58
[2017-02-14 08:25] VITALS: BP 146/92
[2017-02-14 10:50] VITALS: BP 146/92
[2017-02-14 11:31] VITALS: BP 138/83
[2017-02-14] MEDS ORDERED: NYAMYC15 GM TOP (12:53)
[2017-02-14] MEDS ORDERED: PEPCID20 MG PO (12:53)
[2017-02-14] MEDS ORDERED: NITROGLYCERIN0.4 MG SUBLING (12:53)
[2017-02-14] MEDS ORDERED: MIRALAX17 GM PO (12:53)
[2017-02-14] MEDS ORDERED: CEFPODOXIME PR200 M1 PO (13:04)
[2017-02-14 14:23] VITALS: BP 146/92
== END 2017-02-14 15:50 | disposition home health service (06) | DRG 871 ==
LOC: ER 07:52 → EROBS 10:25 → ICU 10:25 → 4S 12:29 → ICU 15:45 → 2N 02-12 20:29 → ENTRNSPT 02-14 15:38 → EDTRNSPTSTS 02-14 15:41 → 2N 02-14 15:50
PROVIDERS: Emergency Medicine; Hospitalist; Internal Medicine Pulmonary Disease
PROC: 02HV33Z Insertion of Infusion Device into Superior Vena Cava, Percutaneous Approach (ICD-10-PCS; principal; 2017-02-09)
PROC: 5A09357 Assistance with Respiratory Ventilation, Less than 24 Consecutive Hours, Continuous Positive Airway Pressure (ICD-10-PCS; 2017-02-11)
PROC: 5A09357 Assistance with Respiratory Ventilation, Less than 24 Consecutive Hours, Continuous Positive Airway Pressure (ICD-10-PCS; 2017-02-12)
PROC: 0D9670Z Drainage of Stomach with Drainage Device, Via Natural or Artificial Opening (ICD-10-PCS; 2017-02-14)
DX: A41.9 Sepsis, unspecified organism (principal); J18.9 Pneumonia, unspecified organism; J96.21 Acute and chronic respiratory failure with hypoxia; J96.22 Acute and chronic respiratory failure with hypercapnia; K56.609 Unspecified intestinal obstruction, unspecified as to partial versus complete obstruction; J44.0 Chronic obstructive pulmonary disease with (acute) lower respiratory infection; J45.901 Unspecified asthma with (acute) exacerbation; L03.90 Cellulitis, unspecified; J44.1 Chronic obstructive pulmonary disease with (acute) exacerbation; K56.7 Ileus, unspecified; K52.9 Noninfective gastroenteritis and colitis, unspecified; I10 Essential (primary) hypertension; M19.90 Unspecified osteoarthritis, unspecified site; E66.01 Morbid (severe) obesity due to excess calories; E11.9 Type 2 diabetes mellitus without complications; M10.9 Gout, unspecified; I48.91 Unspecified atrial fibrillation; Z87.81 Personal history of (healed) traumatic fracture; Z98.42 Cataract extraction status, left eye; Z86.711 Personal history of pulmonary embolism; Z90.49 Acquired absence of other specified parts of digestive tract; Z79.899 Other long term (current) drug therapy; Z82.5 Family history of asthma and other chronic lower respiratory diseases; Z86.010 Personal history of colon polyps; Z86.718 Personal history of other venous thrombosis and embolism
CPT/HCPCS: 10081; 10203; 27000

== ENCOUNTER 2017-03-15 15:15 | Observation (INO) | payer OTHER ==
[~2017-03-15] VITALS: Ht 175.3 cm; Wt 151.9 kg
--- NOTE | ~2017-03-15 | EKG ---
[address] [place] [place] [address] ELECTROCARDIOGRAM REPORT Name: OTF PEÑA BASHIR Room #: 434-P ADM IN M.R.#: [id number] Admission: 03/15/17 Attend Phys: Jace Montano MD Discharge: Date of : 52 Report #: [id number] THIS REPORT FOR: //name// [facility] ED Test Date: 2017-03-15 Test Time: 15:49:45 Pat Name: OTF PEÑA Department: Room: 434 Gender: M Noise Abatement Engineer: : 1950 Requested By: Kushal Palmer Order Number: [id number] MD: Alexander West Measurements Intervals [place] Rate: 85 P: 41 MS: 191 QRS: -47 QRSD: 167 T: 40 QT: 408 QTc: 486 Interpretive Statements Sinus rhythm RBBB and LAFB Probable left ventricular hypertrophy Compared to ECG 02/10/2017 17:05:24 No significant changes Electronically Signed On 03-17-2017 14:02:39 HARDBOARD GRINDER by Alexander West [email or web address] <ELECTRONICALLY SIGNED> By: Alexander West MD, [facility] 03/17/17 1402 1549 1549 Alexander West MD, FACC /EPI
--- NOTE | ~2017-03-15 | HC ---
[facility] [place] [address] CONSULTATION Name: OTF PEÑA Room #: 434-P ADM IN M.R.#: [id number] Admission: 03/15/17 Attend Phys: Jace Montano MD Discharge: Date of : 52 Report #: [id number] THIS REPORT FOR: //name// CC: Jace Rayo CHIEF COMPLAINT: Right leg hematoma. HISTORY OF PRESENT ILLNESS: This is a 66-year-old gentleman who apparently fell 5 days ago. At that point, he suffered a contusion to his right leg. He has been on Xarelto. He is here for evaluation of this. He has a history of hypertension, diabetes, COPD and morbid obesity. ALLERGIES: None. PHYSICAL EXAMINATION: VITAL SIGNS: Temperature is 36.6, blood pressure is 151/74, pulse is 88, respiratory rate is 18. EXTREMITIES: Examination of the patient's right lower extremity notes a hematoma about the distal leg on the right side with associated edema, this is pitting type edema. He has soft compartments both posteriorly and anteriorly. He has full range of motion and motor strength to his ankle joint. The hematoma and ecchymosis are surrounding distal third of his leg. X-RAYS: AP, lateral and oblique of the right lower extremity are negative. IMPRESSION: Right leg hematoma. PLAN: Would be to continue with use of warm compresses over the right lower extremity, certainly no evidence of any compartment type issues at this point. We will follow along with you. <ELECTRONICALLY SIGNED> By: Hunter Mcintosh MD 03/17/17 1027 0821 0934 Hunter Mcintosh MD /nt
[~2017-03-15 15:15] MED LIST changes: +CEFPODOXIME PR200 M1 PO; +NITROGLYCERIN0.4 MG SUBLING; +NYAMYC15 GM TOP; +PEPCID20 MG PO
[2017-03-15 15:19] VITALS: BP 151/74
[2017-03-15 17:24] LABS: ABSOLUTE NEUTROPHILS 8.8 thou/uL (1.4-8.2); BASOPHILS 0.5 % (0.0-2.0); EOSINOPHILS 1.4 % (0.0-3.0); HEMATOCRIT 33.1 % (42.0-52.0); HEMOGLOBIN 11.2 gm/dL (14.0-18.0); LYMPHOCYTES 6.7 % (24.0-44.0); MCH 29.7 pg (26.0-34.0); MCHC 33.7 g/dL (28.0-37.0); MCV 88.1 fL (80.0-100.0); MONOCYTES 6.9 % (1.0-8.0); PLATELET COUNT 186 thou/uL (150-400); POLYS 84.5 % (36.0-66.0); RBC 3.76 mil/uL (4.50-6.00); RDW 15.3 % (10.5-14.5); WBC 10.5 thou/uL (4.0-11.0)
[2017-03-15 17:33] LABS: ANION GAP 4 mmol/L (7-16); BUN 13 mg/dL (7-18); CALCIUM 8.9 mg/dL (8.5-10.1); CHLORIDE 103 mmol/L (98-107); CO2 32 mmol/L (21-32); CREATININE 0.6 mg/dL (0.7-1.3); GLUCOSE 121 mg/dL (74-106); POTASSIUM 3.5 mmol/L (3.5-5.1); SODIUM 139 mmol/L (136-145)
[2017-03-15 17:41] LABS: TROPONIN-I < 0.04 ng/mL (<0.06)
[2017-03-15 17:42] LABS: APTT 22.5 Seconds (24.5-32.8); PROTIME 10.5 Seconds (9.3-11.4)
[2017-03-15 18:40] VITALS: BP 151/74
[2017-03-15 18:56] VITALS: BP 150/76
[2017-03-15 19:22] VITALS: BP 156/70
[2017-03-16 03:42] VITALS: BP 148/70
[2017-03-16 05:47] LABS: ABSOLUTE NEUTROPHILS 5.1 thou/uL (1.4-8.2); BASOPHILS 0.5 % (0.0-2.0); EOSINOPHILS 3.8 % (0.0-3.0); HEMATOCRIT 32.4 % (42.0-52.0); HEMOGLOBIN 10.8 gm/dL (14.0-18.0); LYMPHOCYTES 16.8 % (24.0-44.0); MCH 29.9 pg (26.0-34.0); MCHC 33.5 g/dL (28.0-37.0); MCV 89.3 fL (80.0-100.0); MONOCYTES 10.9 % (1.0-8.0); PLATELET COUNT 191 thou/uL (150-400); RBC 3.62 mil/uL (4.50-6.00); RDW 15.9 % (10.5-14.5); WBC 7.5 thou/uL (4.0-11.0)
[2017-03-16 06:03] LABS: CALCIUM 8.4 mg/dL (8.5-10.1); CREATININE 0.6 mg/dL (0.7-1.3); POTASSIUM 3.6 mmol/L (3.5-5.1)
[2017-03-16 09:14] VITALS: BP 137/59
[2017-03-16 16:14] VITALS: BP 129/59
[2017-03-16 19:23] VITALS: BP 132/58
[2017-03-17 02:05] LABS: GLYCOHEMOGLOBIN (HGB A1C) 5.1 % (4.8-5.6)
[2017-03-17 04:39] VITALS: BP 136/62
[2017-03-17 06:36] LABS: ABSOLUTE NEUTROPHILS 6.3 thou/uL (1.4-8.2); BASOPHILS 0.5 % (0.0-2.0); EOSINOPHILS 3.8 % (0.0-3.0); HEMATOCRIT 32.6 % (42.0-52.0); HEMOGLOBIN 10.9 gm/dL (14.0-18.0); LYMPHOCYTES 17.2 % (24.0-44.0); MCH 29.9 pg (26.0-34.0); MCHC 33.5 g/dL (28.0-37.0); MCV 89.3 fL (80.0-100.0); MONOCYTES 9.9 % (1.0-8.0); PLATELET COUNT 205 thou/uL (150-400); POLYS 68.6 % (36.0-66.0); RBC 3.65 mil/uL (4.50-6.00); RDW 15.8 % (10.5-14.5); WBC 9.2 thou/uL (4.0-11.0)
[2017-03-17 06:47] LABS: CALCIUM 8.5 mg/dL (8.5-10.1); CREATININE 0.6 mg/dL (0.7-1.3); POTASSIUM 3.4 mmol/L (3.5-5.1)
[2017-03-17 07:16] VITALS: BP 142/62
[2017-03-17 14:44] VITALS: BP 142/62
== END 2017-03-17 15:30 | disposition home or self-care (01) ==
LOC: ER 15:15 → 4S 18:02 → EROBS 18:02 → 4S 18:58
PROVIDERS: Emergency Medicine; Internal Medicine Endocrinology, Diabetes & Metabolism
DX: S80.11XA Contusion of right lower leg, initial encounter (principal); I10 Essential (primary) hypertension; J44.9 Chronic obstructive pulmonary disease, unspecified; M19.90 Unspecified osteoarthritis, unspecified site; E66.01 Morbid (severe) obesity due to excess calories; E11.9 Type 2 diabetes mellitus without complications; W19.XXXA Unspecified fall, initial encounter; Y92.89 Other specified places as the place of occurrence of the external cause; Y99.8 Other external cause status; Y93.89 Activity, other specified; Z68.42 Body mass index [BMI] 45.0-49.9, adult; Z99.81 Dependence on supplemental oxygen; Z86.711 Personal history of pulmonary embolism
CPT/HCPCS: 10195

== ENCOUNTER 2017-11-26 08:09 | Inpatient (IN) | payer OTHER ==
[~2017-11-26] VITALS: Ht 175.3 cm; Wt 204.6 kg
--- NOTE | ~2017-11-26 | EKG ---
[place] [address] [facility] [employer] [place] [address] ELECTROCARDIOGRAM REPORT Name: OTF PEÑA Room #: [facility].#: [id number] Admission: Attend Phys: Discharge: Date of : 52 Report #: [id number] THIS REPORT FOR: //name// [facility] ED Test Date: 2017-11-26 Test Time: 08:20:08 Pat Name: OTF PEÑA Department: Room: Gender: M Linux Consultant: : 1950 Requested By: Daniela Cheung Order Number: [id number] MD: Alexander West Measurements Intervals [place] Rate: 77 P: 8 FL: 118 QRS: -48 QRSD: 165 T: 32 QT: 445 QTc: 504 Interpretive Statements Sinus tachycardia Atrial premature complexes Borderline short [place] interval RBBB and LAFB Left ventricular hypertrophy Compared to ECG 03/15/2017 15:49:45 No significant change was found Electronically Signed On 11-26-2017 8:46:13 CDT by Alexander West [email or web address] <ELECTRONICALLY SIGNED> By: Alexander West MD, [facility] 11/26/17 0846 9 9 Alexander West MD, FACC /EPI
[2017-11-26 08:10] VITALS: BP 136/65
[2017-11-26 09:21] LABS: HEMATOCRIT 37.4 % (42.0-52.0); HEMOGLOBIN 12.3 gm/dL (14.0-18.0); MCH 29.5 pg (26.0-34.0); MCV 89.3 fL (80.0-100.0); PLATELET COUNT 215 thou/uL (150-400); RBC 4.18 mil/uL (4.50-6.00); RDW 16.4 % (10.5-14.5); WBC 13.1 thou/uL (4.0-11.0)
[2017-11-26 10:05] LABS: ABSOLUTE NEUTROPHILS 10.6 thou/uL (1.4-8.2); ANISOCYTOSIS SLIGHT; POIKILOCYTOSIS SLIGHT
[2017-11-26 10:14] LABS: ANION GAP 2 mmol/L (7-16); BUN 25 mg/dL (7-18); CHLORIDE 102 mmol/L (98-107); CO2 38 mmol/L (21-32); CREATININE 0.8 mg/dL (0.7-1.3); GLUCOSE 109 mg/dL (74-106); POTASSIUM 4.4 mmol/L (3.5-5.1); SODIUM 142 mmol/L (136-145)
[2017-11-26 10:23] LABS: TROPONIN-I <0.06 ng/mL (<0.06)
[2017-11-26 13:44] VITALS: BP 150/83
[2017-11-26 14:20] VITALS: BP 146/80
[2017-11-26 16:23] VITALS: BP 146/80
[2017-11-26 20:31] VITALS: BP 138/64
[2017-11-27 03:32] VITALS: BP 129/55
[2017-11-27 04:28] LABS: ALBUMIN 2.7 g/dL (3.4-5.0); CALCIUM 8.9 mg/dL (8.5-10.1); CREATININE 0.7 mg/dL (0.7-1.3); PHOSPHORUS 4.4 mg/dL (2.5-4.9); POTASSIUM 3.8 mmol/L (3.5-5.1)
[2017-11-27 04:54] LABS: HEMATOCRIT 37.3 % (42.0-52.0); HEMOGLOBIN 11.9 gm/dL (14.0-18.0); MCH 28.8 pg (26.0-34.0); RBC 4.14 mil/uL (4.50-6.00); RDW 16.4 % (10.5-14.5); WBC 9.9 thou/uL (4.0-11.0)
[2017-11-27 07:50] VITALS: BP 128/59
[2017-11-27 19:14] VITALS: BP 137/69
[2017-11-27 20:00] VITALS: BP 166/73
[2017-11-28 04:33] VITALS: BP 159/83
[2017-11-28 09:16] VITALS: BP 139/77
[2017-11-28 17:17] VITALS: BP 144/60
[2017-11-28 20:00] VITALS: BP 133/75
[2017-11-29 04:00] VITALS: BP 152/79
[2017-11-29 08:34] VITALS: BP 137/73
[2017-11-29] MEDS ORDERED: NORCO 7.5-3251 EACH PO (09:22)
[2017-11-29] MEDS ORDERED: BACTRIM DS TAB1 EACH PO (09:23)
[2017-11-29] MEDS ORDERED: THEO-24100 MG PO (09:23)
[2017-11-29 15:05] VITALS: BP 166/95
[2017-11-30] MEDS ORDERED: BACTRIM DS TAB1 EACH PO (12:25)
[2017-11-30] MEDS ORDERED: CARTIA XT180 M1 PO (12:42)
== END 2017-11-29 15:22 | DRG 871 ==
LOC: ER 08:09 → EROBS 12:47 → 4E 12:47 → 3W 11-28 18:52
PROVIDERS: Emergency Medicine; Hospitalist
DX: A41.9 Sepsis, unspecified organism (principal); J18.9 Pneumonia, unspecified organism; L03.311 Cellulitis of abdominal wall; J44.1 Chronic obstructive pulmonary disease with (acute) exacerbation; Z68.44 Body mass index [BMI] 60.0-69.9, adult; I69.351 Hemiplegia and hemiparesis following cerebral infarction affecting right dominant side; J44.0 Chronic obstructive pulmonary disease with (acute) lower respiratory infection; M79.3 Panniculitis, unspecified; I10 Essential (primary) hypertension; E11.9 Type 2 diabetes mellitus without complications; B37.9 Candidiasis, unspecified; M62.84 Sarcopenia; M17.0 Bilateral primary osteoarthritis of knee; I72.8 Aneurysm of other specified arteries; E66.01 Morbid (severe) obesity due to excess calories; Z90.49 Acquired absence of other specified parts of digestive tract; Z99.81 Dependence on supplemental oxygen; Z86.711 Personal history of pulmonary embolism; Z98.42 Cataract extraction status, left eye; Z86.718 Personal history of other venous thrombosis and embolism; Z87.81 Personal history of (healed) traumatic fracture; Z79.84 Long term (current) use of oral hypoglycemic drugs; Z79.51 Long term (current) use of inhaled steroids; Z79.01 Long term (current) use of anticoagulants; Z79.899 Other long term (current) drug therapy; Z82.5 Family history of asthma and other chronic lower respiratory diseases; Z83.3 Family history of diabetes mellitus; Z82.49 Family history of ischemic heart disease and other diseases of the circulatory system; Z82.69 Family history of other diseases of the musculoskeletal system and connective tissue; Z83.71 Family history of colonic polyps
CPT/HCPCS: 10779; 10783

== ENCOUNTER 2017-11-30 11:21 | Inpatient (IN) | payer OTHER ==
[2017-11-30] VITALS (8 sets, daily range): BP systolic 127–158; BP diastolic 61–80
[~2017-11-30] VITALS: Ht 180.3 cm; Wt 185.2 kg
--- NOTE | ~2017-11-30 | HC ---
[facility] [place] [address] CONSULTATION Name: OTF PEÑA Room #: 245-P ADM IN M.R.#: [id number] Admission: 11/30/17 Attend Phys: Doug Doty MD Discharge: Date of : 52 Report #: [id number] THIS REPORT FOR: //name// CC: FAM physician/PCP Doug Doty TYPE OF REPORT: Pulmonary consultation. REFERRING PHYSICIAN: Doug Doty M.D. REASON FOR REFERRAL: Rihlh-ep-ujhqhhn respiratory failure. HISTORY OF PRESENT ILLNESS: The patient is a 67-year-old white male with multiple medical problems, brought to Emergency Room with dyspnea. He was just discharged yesterday from this hospital. A pulmonary consultation was requested. The patient has a complex severe medical history. He has a long history of severe asthma, on chronic steroids for several years. He has been on prednisone 20 mg once a day. He has undergone bronchial thermoplasty in the past. He has been seen by Dr. Pepper in the past. He is oxygen dependent at 4 liters of O2. He has morbid obesity. He has had a prior history of DVT along with pulmonary embolus. He has an IVC filter placed. He has had numerous hospitalizations in the past including multiple hospitalizations in 2017. Again, he was just dismissed from this hospital yesterday. During the last admission, the patient was found to have a large hematoma involving his abdominal wall. It was felt to be related to a fall. He was also treated for nesbitt cellulitis. When he was brought in the Emergency Room, he was found to be dyspneic in distress. He was placed on BiPAP. His mental status waxed and waned. At one point, he became quite somnolent. Dr. Farley in the Emergency Room had evaluated the patient for possible intubation. However, the family has expressed that the patient does not want to be on life support. He is currently on BiPAP, very somnolent and not responsive. PAST MEDICAL HISTORY: As mentioned above. History of severe asthma; chronic steroids; status post bronchial thermoplasty x 2; chronic O2 at 4 liters; recent abdominal wall hematoma; presumably from a fall; nesbitt cellulitis; progressive weakness and debility; hypertension; diabetes mellitus; history of DVT; bilateral pulmonary embolus; status post IVC filter placement, on chronic anticoagulation; history of CVA with left-sided weakness and osteoarthritis. PAST SURGICAL HISTORY: As mentioned above including left cataract surgery, [facility] [address] [place] [address] CONSULTATION Name: OTF PEÑA Room #: 245-P [facility] IN ..#: [id number] Admission: 11/30/17 Attend Phys: Doug Doty MD Discharge: Date of : 52 Report #: [id number] laparoscopic cholecystectomy, right rotator cuff surgery and past history of left rib fracture status post ventral herniorrhaphy. ALLERGIES: None to medications. HOME MEDICATIONS: List reviewed. This include diltiazem, Spiriva, Lasix, Glucophage, Flonase, vitamin D supplements, Zyloprim, budesonide, K-Dur and Bactrim. FAMILY HISTORY: Noncontributory. SOCIAL HISTORY: Disabled for a long time, denies no prior history of tobacco or alcohol use. REVIEW OF SYSTEMS: Deferred. The patient is not able to provide answers as he is quite somnolent. PHYSICAL EXAMINATION: VITAL SIGNS: Temperature is 102 degrees Fahrenheit, pulse is 100, respiratory rate 26, blood pressure of 72 mmHg and saturation 97%. HEENT: Unremarkable. NECK: Supple. CHEST: Breath sounds are distant. No obvious rales or wheezes. CARDIOVASCULAR: Heart sounds are distant. No obvious murmurs or gallop. Pulses are 2+/4+ bilaterally. ABDOMEN: Obese, soft and nontender. No organomegaly or masses felt. GENITOURINARY: Deferred. RECTAL: Deferred. EXTREMITIES: There is no cyanosis or clubbing. A 2-3+ bilateral edema is noted. Stasis dermatitis changes are noted. NEUROLOGICAL: He is quite somnolent at this time. He was awake to some degree in the Emergency Room. RADIOLOGICAL DATA: Chest x-ray shows small lung volumes, increased pulmonary vascular markings, poor technique. No obvious consolidation. Recent CT chest performed on November 26 shows no significant parenchymal abnormalities. There is a soft tissue hematoma seen in the right chest wall area. LABORATORY DATA: Sodium 144, potassium 3.8, chloride 103, CO2 is 35, BUN is 25 and creatinine is 1.4 and few days ago it was normal at 0.7. Liver enzymes are grossly unremarkable. WBC 13,600; hemoglobin is 12.7 and platelets are normal. No obvious bandemia. Albumin 2.3. Arterial blood gas on admission revealed pH 7.37, pCO2 of 58 and pO2 411 on FiO2 100%. IMPRESSION: 1. Jsefs-ys-qggiflx hypercapnic hypoxic respiratory failure in this 67-year-old [facility] [address] [place] [address] CONSULTATION Name: OTF PEÑA Room #: 245-P ADM IN M.R.#: [id number] Admission: 11/30/17 Attend Phys: Doug Doty MD Discharge: Date of : 51 Report #: [id number] morbidly obese white male with long history of severe asthma, steroid dependent. He now presents with progressive dyspnea. There has been a mental status change since admission from the ER, be more somnolent and is also afebrile. 2. Respiratory failure is likely multifactorial due to ongoing severe asthma, progressive debility and weakness along with probable obesity hypoventilation syndrome with probable obstructive sleep apnea. Febrile illness may suggest sepsis. Source at this time is unclear. Chest x-ray does show some hazy changes, which might suggest early pneumonia. A recent cellulitis is also concerning for ongoing infection. 3. Febrile illness, altered mental status, likely sepsis, encephalopathy. 4. Long history of severe asthma, steroid dependent, status post bronchial thermoplasty. 5. History of bilateral pulmonary embolus, deep venous thrombosis, status post inferior vena cava filter placement, had been on anticoagulation. 6. Acute kidney injury, presumably related to sepsis, resulting in acute tubular necrosis. 7. Severe protein-calorie malnutrition. 8. Recent fall with hematoma involving the abdominal wall and the right chest wall. 9. Recent cellulitis involving his pannus. 10. Hypertension. 11. Diabetes mellitus. 12. History of cerebrovascular accident with right-sided weakness, which along with progressive weakness as mentioned above. 13. Medical directive, do not resuscitate per family. RECOMMENDATIONS: I will continue BiPAP, bronchodilators, corticosteroids along with broad-spectrum antibiotics to cover for nosocomial infections. DVT and GI prophylaxis has been addressed. Overall, outlook appears to be poor given severe comorbid conditions along with morbid obesity and weakness. Agree with DNR status. We would recommend comfort measures should the patient appears to be in distress. Thank you for this consultation. <ELECTRONICALLY SIGNED> By: Joel Rasheed MD 12/01/17 1407 1951 0122 Joel Rasheed MD /nt
[~2017-11-30 11:21] MED LIST changes: +BACTRIM DS TAB1 EACH PO; +NORCO 7.5-3251 EACH PO; +THEO-24100 MG PO
[2017-11-30 11:54] LABS: BE(vivo) 6.3 mmol/L (-2 to +3); HCO3 33.2 mmol/L (22.0-26.0); PCO2 58.2 mmHg (35.0-45.0); PO2 411.9 mmHg (80.0-100.0); pH 7.374 (7.360-7.450); sO2 99.8 % (92.0-98.0)
[2017-11-30 11:56] LABS: HEMATOCRIT 37.8 % (42.0-52.0); HEMOGLOBIN 12.7 gm/dL (14.0-18.0); MCHC 33.5 g/dL (28.0-37.0); MCV 89.5 fL (80.0-100.0); PLATELET COUNT 181 thou/uL (150-400); RBC 4.22 mil/uL (4.50-6.00); RDW 16.7 % (10.5-14.5); WBC 13.6 thou/uL (4.0-11.0)
[2017-11-30 12:02] LABS: ANION GAP 6 mmol/L (7-16); BUN 25 mg/dL (7-18); CALCIUM 9.2 mg/dL (8.5-10.1); CHLORIDE 103 mmol/L (98-107); CO2 35 mmol/L (21-32); CREATININE 1.4 mg/dL (0.7-1.3); GLUCOSE 108 mg/dL (74-106); POTASSIUM 3.8 mmol/L (3.5-5.1); SODIUM 144 mmol/L (136-145)
[2017-11-30 12:10] LABS: ALBUMIN 2.3 g/dL (3.4-5.0); SGOT 37 U/L (15-37); SGPT 25 U/L (30-65); TOTAL BILIRUBIN 1.2 mg/dL (<0.1-1.0); TOTAL PROTEIN 6.4 g/dL (6.4-8.2); TROPONIN-I <0.06 ng/mL (<0.06)
[2017-11-30] MEDS ORDERED: BACTRIM DS TAB1 EACH PO (12:25)
[2017-11-30 12:32] LABS: ABSOLUTE NEUTROPHILS 10.6 thou/uL (1.4-8.2); ANISOCYTOSIS 1+
[2017-11-30] MEDS ORDERED: CARTIA XT180 M1 PO (12:42)
[2017-11-30 14:28] LABS: BE(vivo) 6.3 mmol/L (-2 to +3); HCO3 34.1 mmol/L (22.0-26.0); PCO2 64.9 mmHg (35.0-45.0); PO2 127.4 mmHg (80.0-100.0); pH 7.339 (7.360-7.450); sO2 98.3 % (92.0-98.0)
[2017-12-01] VITALS (24 sets, daily range): BP systolic 107–176; BP diastolic 57–102
[2017-12-01 05:49] LABS: CALCIUM 8.4 mg/dL (8.5-10.1); CREATININE 1.1 mg/dL (0.7-1.3); POTASSIUM 3.8 mmol/L (3.5-5.1)
[2017-12-01 05:53] LABS: HEMATOCRIT 36.5 % (42.0-52.0); HEMOGLOBIN 11.7 gm/dL (14.0-18.0); MCH 28.9 pg (26.0-34.0); MCV 90.2 fL (80.0-100.0); RBC 4.04 mil/uL (4.50-6.00); RDW 16.5 % (10.5-14.5); WBC 11.1 thou/uL (4.0-11.0)
[2017-12-02] VITALS (23 sets, daily range): BP systolic 112–175; BP diastolic 51–100
[2017-12-02 05:37] LABS: CALCIUM 8.5 mg/dL (8.5-10.1); CREATININE 0.9 mg/dL (0.7-1.3); POTASSIUM 3.5 mmol/L (3.5-5.1); TOTAL BILIRUBIN 0.3 mg/dL (<0.1-1.0); TOTAL PROTEIN 6.6 g/dL (6.4-8.2)
[2017-12-02 05:48] LABS: HEMATOCRIT 34.7 % (42.0-52.0); MCH 28.4 pg (26.0-34.0); MCHC 31.7 g/dL (28.0-37.0); MCV 89.6 fL (80.0-100.0); RBC 3.87 mil/uL (4.50-6.00); RDW 15.7 % (10.5-14.5); WBC 12.8 thou/uL (4.0-11.0)
[2017-12-03] VITALS (9 sets, daily range): BP systolic 97–171; BP diastolic 50–102
[2017-12-03 05:00] LABS: ALBUMIN 2.1 g/dL (3.4-5.0); CALCIUM 8.6 mg/dL (8.5-10.1); CREATININE 0.9 mg/dL (0.7-1.3); MAGNESIUM 2.4 mg/dL (1.8-2.4); POTASSIUM 3.4 mmol/L (3.5-5.1); TOTAL BILIRUBIN 0.3 mg/dL (<0.1-1.0); TOTAL PROTEIN 6.4 g/dL (6.4-8.2)
[2017-12-03 05:06] LABS: ABSOLUTE NEUTROPHILS 9.6 thou/uL (1.4-8.2); HEMATOCRIT 33.9 % (42.0-52.0); HEMOGLOBIN 11.2 gm/dL (14.0-18.0); LYMPHOCYTES 3.4 % (24.0-44.0); MCH 29.3 pg (26.0-34.0); MCV 88.9 fL (80.0-100.0); MONOCYTES 4.1 % (1.0-8.0); PLATELET COUNT 157 thou/uL (150-400); POLYS 92.5 % (36.0-66.0); RBC 3.81 mil/uL (4.50-6.00); RDW 15.9 % (10.5-14.5); WBC 10.4 thou/uL (4.0-11.0)
[2017-12-04 05:00] VITALS: BP 154/92
[2017-12-04 05:27] LABS: BASOPHILS 0.3 % (0.0-2.0); HEMATOCRIT 34.7 % (42.0-52.0); HEMOGLOBIN 11.3 gm/dL (14.0-18.0); LYMPHOCYTES 2.1 % (24.0-44.0); MCH 28.8 pg (26.0-34.0); MCHC 32.5 g/dL (28.0-37.0); MCV 88.8 fL (80.0-100.0); MONOCYTES 5.8 % (1.0-8.0); PLATELET COUNT 168 thou/uL (150-400); POLYS 91.8 % (36.0-66.0); RBC 3.91 mil/uL (4.50-6.00); RDW 16.1 % (10.5-14.5); WBC 10.9 thou/uL (4.0-11.0)
[2017-12-04 05:47] LABS: CALCIUM 8.4 mg/dL (8.5-10.1); CREATININE 0.9 mg/dL (0.7-1.3); POTASSIUM 3.4 mmol/L (3.5-5.1)
[2017-12-04 11:33] VITALS: BP 148/87
[2017-12-04 15:54] VITALS: BP 155/90
[2017-12-04 19:30] VITALS: BP 134/78
[2017-12-04 23:25] VITALS: BP 152/92
[2017-12-05 03:25] VITALS: BP 154/52
[2017-12-05 06:14] LABS: HEMATOCRIT 35.2 % (42.0-52.0); HEMOGLOBIN 11.5 gm/dL (14.0-18.0); MCH 29.1 pg (26.0-34.0); MCHC 32.6 g/dL (28.0-37.0); MCV 89.3 fL (80.0-100.0); RBC 3.95 mil/uL (4.50-6.00); RDW 16.2 % (10.5-14.5)
[2017-12-05 06:23] LABS: CALCIUM 8.8 mg/dL (8.5-10.1); CREATININE 0.8 mg/dL (0.7-1.3); POTASSIUM 3.5 mmol/L (3.5-5.1)
[2017-12-05 08:16] VITALS: BP 148/80
[2017-12-05 11:31] VITALS: BP 150/91
[2017-12-05 15:10] VITALS: BP 151/75
[2017-12-05 19:24] VITALS: BP 150/88
[2017-12-06 03:56] VITALS: BP 143/89
[2017-12-06 06:11] LABS: HEMOGLOBIN 12.1 gm/dL (14.0-18.0); MCH 29.2 pg (26.0-34.0); MCHC 32.7 g/dL (28.0-37.0); MCV 89.3 fL (80.0-100.0); RBC 4.15 mil/uL (4.50-6.00); RDW 16.1 % (10.5-14.5); WBC 13.9 thou/uL (4.0-11.0)
[2017-12-06 06:16] LABS: CALCIUM 8.9 mg/dL (8.5-10.1); CREATININE 0.8 mg/dL (0.7-1.3); POTASSIUM 3.4 mmol/L (3.5-5.1)
[2017-12-06 07:41] VITALS: BP 150/100
[2017-12-06 11:40] VITALS: BP 140/83
[2017-12-06] MEDS ORDERED: PREDNISONE 20 M20 MG PO (12:25)
[2017-12-06] MEDS ORDERED: AUGMENTIN 875-1 EACH PO (12:25)
== END 2017-12-06 15:56 | DRG 871 ==
LOC: ER 11:21 → EROBS 12:58 → ICU 12:58 → 3W 12-04 18:19
PROVIDERS: Hospitalist; Student in an Organized Health Care Education/Training Program
PROC: 5A09357 Assistance with Respiratory Ventilation, Less than 24 Consecutive Hours, Continuous Positive Airway Pressure (ICD-10-PCS; principal; 2017-11-30)
PROC: 05HY33Z Insertion of Infusion Device into Upper Vein, Percutaneous Approach (ICD-10-PCS; 2017-12-01)
PROC: 5A09357 Assistance with Respiratory Ventilation, Less than 24 Consecutive Hours, Continuous Positive Airway Pressure (ICD-10-PCS; 2017-12-01)
PROC: 5A09357 Assistance with Respiratory Ventilation, Less than 24 Consecutive Hours, Continuous Positive Airway Pressure (ICD-10-PCS; 2017-12-02)
PROC: 5A09357 Assistance with Respiratory Ventilation, Less than 24 Consecutive Hours, Continuous Positive Airway Pressure (ICD-10-PCS; 2017-12-03)
PROC: 5A09357 Assistance with Respiratory Ventilation, Less than 24 Consecutive Hours, Continuous Positive Airway Pressure (ICD-10-PCS; 2017-12-04)
PROC: 5A09357 Assistance with Respiratory Ventilation, Less than 24 Consecutive Hours, Continuous Positive Airway Pressure (ICD-10-PCS; 2017-12-05)
DX: A41.9 Sepsis, unspecified organism (principal); J96.22 Acute and chronic respiratory failure with hypercapnia; J96.21 Acute and chronic respiratory failure with hypoxia; E43 Unspecified severe protein-calorie malnutrition; G93.40 Encephalopathy, unspecified; Z68.43 Body mass index [BMI] 50.0-59.9, adult; I69.351 Hemiplegia and hemiparesis following cerebral infarction affecting right dominant side; J44.1 Chronic obstructive pulmonary disease with (acute) exacerbation; N17.9 Acute kidney failure, unspecified; E87.0 Hyperosmolality and hypernatremia; G47.33 Obstructive sleep apnea (adult) (pediatric); Z66 Do not resuscitate; I50.9 Heart failure, unspecified; E11.9 Type 2 diabetes mellitus without complications; I11.0 Hypertensive heart disease with heart failure; E66.01 Morbid (severe) obesity due to excess calories; M19.90 Unspecified osteoarthritis, unspecified site; Z99.81 Dependence on supplemental oxygen; Z86.711 Personal history of pulmonary embolism; Z86.718 Personal history of other venous thrombosis and embolism; Z90.49 Acquired absence of other specified parts of digestive tract; Z98.42 Cataract extraction status, left eye; Z87.81 Personal history of (healed) traumatic fracture; Z79.51 Long term (current) use of inhaled steroids; Z79.84 Long term (current) use of oral hypoglycemic drugs; Z79.899 Other long term (current) drug therapy; Z82.5 Family history of asthma and other chronic lower respiratory diseases; Z83.3 Family history of diabetes mellitus; Z82.49 Family history of ischemic heart disease and other diseases of the circulatory system; Z82.69 Family history of other diseases of the musculoskeletal system and connective tissue; Z83.71 Family history of colonic polyps
CPT/HCPCS: 10078; 10779; 27001

== ENCOUNTER 2018-03-04 11:33 | Inpatient (IN) | payer OTHER ==
[~2018-03-04] VITALS: Ht 180.3 cm; Wt 163.7 kg
[2018-03-04] VITALS (29 sets, daily range): BP systolic 84–158; BP diastolic 36–104
--- NOTE | ~2018-03-04 | EKG ---
[place] [address] [facility] [place] [address] ELECTROCARDIOGRAM REPORT Name: OTF PEÑA Room #: 247-P ADM IN M.R.#: [id number] Admission: 03/04/18 Attend Phys: Quinten Ko MD Discharge: Date of : 51 Report #: [id number] THIS REPORT FOR: //name// [facility] ED Test Date: 2018-03-04 Test Time: 11:39:46 Pat Name: OTF PEÑA Department: Room: [facility] Gender: M Transportation Driver: LESLIE : 1950 Requested By: Chris Kaur Order Number: [id number] MD: Alexander West Measurements Intervals [place] Rate: 148 P: IN: QRS: -95 QRSD: 144 T: 51 QT: 270 QTc: 424 Interpretive Statements Atrial flutter with varied AV block, Right bundle branch block Left anterior hemiblock Compared to ECG 11/26/2017 08:20:08 Sinus rhythm no longer present Electronically Signed On 03-04-2018 17:22:35 [employer]OOLOG[employer] TEACH[employer] by Alexander West [email or web address] <ELECTRONICALLY SIGNED> By: Alexander West MD, [facility] 03/04/18 7116 1139 1139 Alexander West MD, [facility] /EPI
--- NOTE | ~2018-03-04 | 2DMMODE ---
[facility] [place] [address] 2 D/M-MODE ECHOCARDIOGRAM Name: OTF PEÑA Room #: 247-P ADM IN M.R.#: [id number] Admission: 03/04/18 Attend Phys: Quinten Ko MD Discharge: Date of : 52 Date of Service: 03/04/18 1639 Report #: [id number] THIS REPORT FOR: //name// APPROVED REPORT Study performed: 03/04/2018 15:17:49 EXAM: Limited 2D Echocardiogram Patient Location: ER Status: MAGDALENA BSA: 2.69 HR: 144 bpm BP: 149/93 mmHg Other Information Study Quality: Poor Technically limited study due to massive obesity, in ER on BiPAP, no mobility or cooperation.. Indications Aflutter with RVR, short of breath, COPD exacerbation. Hx: pulmonary embolism, HTN, DM. (Very limited exam) Left Ventricle The left ventricle appears normal size. Regional wall motion is not well visualized but grossly normal. Unable to assess LV wall thickness. LV function is very difficult to assess but appears normal. Right Ventricle Right ventricle is poorly visualized. Atria The atria are difficult to assess. Aortic Valve The aortic valve is not visualized. Mitral Valve Mitral valve is not well visualized. Tricuspid Valve Tricuspid valve is not well visualized. Unable to assess PA pressure. [facility] [address] [place] [employer] [place] [address] 2 D/M-MODE ECHOCARDIOGRAM Name: OTF PEÑA Room #: 247-P ADM IN M.R.#: [id number] Admission: 03/04/18 Attend Phys: Quinten Ko MD Discharge: Date of : 52 Date of Service: 03/04/181638 Report #: [id number] Pericardium There is no pericardial effusion noted. <Conclusion> Limited study LV function is very difficult to assess but appears normal. Regional wall motion is not well visualized but grossly normal. The aortic valve is not visualized. Mitral valve is not well visualized. There is no pericardial effusion noted. <ELECTRONICALLY SIGNED> By: Alexander West MD, FACC 03/04/181638 38 38 Alexander West MD, FACC /INF
--- NOTE | ~2018-03-04 | HC ---
[facility] [place] [address] [place] [address] CONSULTATION Name: OTF PEÑA Room #: 170-6 ADM IN M.R.#: [id number] Admission: 03/04/18 Attend Phys: Quinten Ko MD Discharge: Date of : 52 Report #: [id number] THIS REPORT FOR: //name// CC: Cristiano Ko DATE OF SERVICE: 03/04/2018 CARDIOLOGY CONSULTATION HISTORY OF PRESENT ILLNESS: The patient is a 67-year-old male who I am not able to get a lot of history from, comes in with acutely short of breath, brought by EMS for COPD exacerbation. Multiple hospitalizations with COPD, has never seen Cardiology before. He was in a heart rate of 140s, but could have been atrial flutter, but I suspect this was more sinus tachycardia with a bundle. He remained hemodynamically stable with it and treated with Cardizem IV bolus x 2 and IV Lopressor, now in the 110s. He states he feels better, but really although he is given no other history. He has severe morbid obesity. There is a question of a partial thrombus, which may be new in the right lower extremity, although not flow limiting. He has large edematous legs with some ulcer formation on the right lower extremity. He denies chest pain and his troponin is negative. PAST MEDICAL HISTORY: Positive for hypertension, diabetes, morbid obesity, severe bronchitis on theophylline, DJD, bilateral PE in the past, CPAP for obstructive apnea, fractured rib, rotator cuff, cataract, IVC filter, pannus removal and several ventral hernia repairs. MEDICATIONS: Albuterol, nystatin, prednisone 40 daily, diltiazem 180, Spiriva, Lasix 40, Glucophage, Flonase, vitamins, Zyloprim, potassium. It looks like he is not anticoagulated. ALLERGIES: No known drug allergies. SOCIAL HISTORY: He denies alcohol or tobacco. He states he is not with no children; I do not know that he is being accurate. REVIEW OF SYSTEMS: Really not obtainable. LABORATORY DATA: Sodium 138, potassium 4.8, creatinine 0.6. Troponin less than 0.06. His proBNP is 105. GFR is 135. SGPT is only liver function abnormality 147. Theophylline level 3.2. INR is normal. H and H is 13 and 41, white count 23, platelets 209. Chest x-ray does not appear to be acute pulmonary process here. There does appear to be some interstitial pulmonary edema, no focal consolidation. [facility] [address] [place] [address] CONSULTATION Name: OTF PEÑA Room #: 170-6 ADM IN [facility]#: [id number] Admission: 03/04/18 Attend Phys: Quinten Ko MD Discharge: Date of : 52 Report #: [id number] PHYSICAL EXAMINATION: VITAL SIGNS: Nonrebreathing mask on, pulse 114, blood pressure is 130/90. GENERAL: He is partially responsive. He states he is not in pain. HEENT: Pharynx is clear. Eyes reveal no xanthelasmas. NECK: Shows diminished upstrokes. CARDIOVASCULAR: Rate and rhythm is tachycardic, S1, S2 distant. ABDOMEN: Obese, nontender. EXTREMITIES: Reveal significant edema 2-3+. There is right anterior rojas with some excoriations and ulcer formation. NEUROLOGIC: He moves extremities, although purposefully. I cannot palpate distal pulses. Neurologic otherwise appears to be nonfocal. ASSESSMENT: 1. Acute chronic obstructive pulmonary disease and hypoxemia. 2. Atrial flutter, but I suspect this may well be sinus tachycardia secondary to chronic obstructive pulmonary disease and hypoxemia. He has slowed down now, looks to be sinus tachycardia with a bundle-branch block. 3. Hypertension. 4. Hypercholesterolemia. 5. Morbid obesity. 6. Obstructive sleep apnea. 7. Degenerative joint disease. 8. History of IVC filter. RECOMMENDATIONS AND PLAN: I agree with IV Cardizem for now, but really need to treat the underlying hypoxemia. IV Lasix has been given because of the significant edema. We will follow that although the BNP and chest x-ray does not support a lot of volume overload here. We will obtain an echo Doppler later today or in the a.m. Repeat a.m. lab. It does not appear to be an ischemic event. Holding on theophylline. Pulmonary consult will certainly be helpful here. We will follow with you. Thank you for asking me to assist in the care of this patient. By: 1343 1555 Higinio Em MD, FACC /nt
--- NOTE | ~2018-03-04 | 2DMMODE ---
[facility] [place] [address] 2 D/M-MODE ECHOCARDIOGRAM Name: OTF PEÑA Room #: 247-P ADM IN M.R.#: [id number] Admission: 03/04/18 Attend Phys: Quinten Ko MD Discharge: Date of : 52 Date of Service: 03/05/18 0941 Report #: [id number] THIS REPORT FOR: //name// APPROVED REPORT Study performed: 03/05/2018 08:26:13 EXAM: Comprehensive 2D, Doppler, and color-flow Echocardiogram Patient Location: ICU Room #: [facility] Status: routine BSA: 2.66 HR: 105 bpm BP: 104/59 mmHg Other Information Study Quality: Technically DifficultTechnically Limited with very little useful information Technically limited study due to body habitus, inability to position patient. Indications COPD Atrial Fibrillation Dyspnea Echo Enhancing Agent Indication: Endocardial border delineation Agent(s) / Amount(s) Used: Optison 4 cc 2D Dimensions IVSd: 13.89 (7-11mm) LVOT Diam: 19.17 (18-24mm) LVDd: 54.61 mm PWd: 14.61 (7-11mm) Ascending Ao: 32.17 (22-36mm) LVDs: 42.83 (25-40mm) Aortic Root: 34.86 mm Pulmonary Valve PV Peak Ronnell.: 0.88 m/s PV Peak Gr.: 3.22 mmHg Left Ventricle The left ventricle is normal size. Left ventricular systolic function is borderline. LVEF is 50%. This study is not technically sufficient to allow evaluation of the LV diastolic function. [facility] [place] [address] [place] [address] 2 D/M-MODE ECHOCARDIOGRAM Name: OTF PEÑA Room #: 247-P ADM IN M.R.#: [id number] Admission: 03/04/18 Attend Phys: Quinten Ko MD Discharge: Date of : 52 Date of Service: 03/05/18 0941 Report #: [id number] Right Ventricle Right ventricle is not well visualized. Atria The left atrium size is normal. The right atrium size is normal. Aortic Valve The aortic valve is not well visualized. Echogenicity suggests Aortic valve is calcified no further assessment possible. No aortic regurgitation is present. There is no aortic valvular stenosis. Mitral Valve Mitral valve is not well visualized. There is no mitral valve regurgitation noted. No evidence of mitral valve stenosis. Tricuspid Valve Tricuspid valve is not well visualized. There is no tricuspid valve regurgitation noted. Pulmonic Valve Pulmonic valve is not well visualized. There is no pulmonic valvular regurgitation. Great Vessels The aortic root is normal in size. IVC is dilated. Pericardium There is no pericardial effusion. <Conclusion> The left ventricle is normal size. The left atrium size is normal. The right atrium size is normal. The aortic valve is not well visualized. Echogenicity suggests Aortic valve is calcified no further assessment possible. Mitral valve is not well visualized. Tricuspid valve is not well visualized. Pulmonic valve is not well visualized. [facility] [place] [address] [place] [address] [place] [address] 2 D/M-MODE ECHOCARDIOGRAM Name: OTF PEÑA Room #: 247-P [facility] IN M.R.#: [id number] Admission: 03/04/18 Attend Phys: Quinten Ko MD Discharge: Date of : 52 Date of Service: 03/05/18940 Report #: [id number] The aortic root is normal in size. There is no pericardial effusion. <ELECTRONICALLY SIGNED> By: Warren Mcghee MD 03/05/18940 0 0 Warren Mcghee MD /INF
--- NOTE | ~2018-03-04 | HC ---
[facility] [place] [address] [place] [address] CONSULTATION Name: OTF PEÑA Room #: 247-P ADM IN M.R.#: [id number] Admission: 03/04/18 Attend Phys: Quinten Ko MD Discharge: Date of : 52 Report #: [id number] THIS REPORT FOR: //name// CC: Cristiano Ko DATE OF SERVICE: 03/04/2018 REASON FOR CONSULTATION: I was asked to evaluate concerning septic shock. HISTORY OF PRESENT ILLNESS: The patient is a 67-year-old group home resident with underlying diabetes, hypertension, COPD, asthma, morbid obesity, obstructive sleep apnea, DVT with PE and stroke with right hemiparesis, presents now with dyspnea. Seen in the Emergency Room with heart rate in the 140s. He was maintaining adequate blood pressure with this, but developed further respiratory failure, now is in the Intensive Care Unit on BiPAP. It is noted that the patient is a DNR. I have discussed the case with nursing staff and intensive care deicer inspector pneumatic at the bedside. The patient was unable to give me any further details. It is evident that they were suctioning some egg and food material out of his airway. Unclear how much he aspirated. There has been no emesis. He has had no diarrhea. He remains encephalopathic, although he is awake. He was markedly edematous. He had an echocardiogram, which showed adequate ejection fraction with no valvular changes. He has had no diarrhea. He has had reasonable urine output with Lasix. He has been seen by Cardiology and placed on digoxin and Cardizem drip. REVIEW OF SYSTEMS: Ten-point review of systems otherwise negative other than noted nonocclusive DVT on the right lower extremity and venous stasis ulceration on that leg. ALLERGIES: None. MEDICATIONS: As noted on his MAR, noting that patient was on 40 mg of prednisone a day prior to his admission. He is now on vancomycin and Zosyn. PAST MEDICAL HISTORY: Hypertension, diabetes, obesity, COPD, obstructive sleep apnea, asthma, DJD, bilateral PEs, rotator cuff repair, fractured ribs, IVC filter, cataract surgery, panniculectomy, ventral hernia repair. FAMILY HISTORY: Noncontributory. SOCIAL HISTORY: Nonsmoker, no significant alcohol intake. PHYSICAL EXAMINATION: VITAL SIGNS: The patient was afebrile, on BiPAP. Heart rate 125, respiratory rate 40, blood pressure 82/50. [facility] [address] [place] [address] CONSULTATION Name: OTF PEÑA BASHIR Room #: 247-P [facility] IN .R.#: [id number] Admission: 03/04/18 Attend Phys: Quinten Ko MD Discharge: Date of : 52 Report #: [id number] GENERAL: He was arousable. Not able to converse. He had 3+ anasarca. HEENT: Eyes without conjunctivitis or scleral icterus. Mouth unable to be examined due to his BiPAP mask. NECK: Supple. LUNGS: Coarse bilaterally. No consolidation. HEART: Tachycardic and regular. Could not appreciate any murmur. ABDOMEN: Obese, did not appear tender. No appreciable mass. EXTREMITIES: 3+ anasarca. Cellulitis with ulceration in the right lower extremity. This involved the lower pretibial leg. He had ecchymosis in both feet distally. With marked edema, could not palpate adequate pulses. He was able to move his left side. There were no other decubiti. No palpable adenopathy. NEUROLOGIC: Unable to assess him further neurologically or his mood. Although he was unable to communicate, he was awake. LABORATORY STUDIES: Hemoglobin 14.3, WBC 16.6 with 24% bands, platelet count 189,000. Sodium 138, potassium 4.8, bicarbonate 33, creatinine 0.6, bilirubin 1.2, ALT 147. BNP 105. Urinalysis, rbc's. ABG on 45% BiPAP, pO2 87, pCO2 40, pH 7.4, lactate 2.6. Echocardiogram: Normal EF. Chest x-ray: Pulmonary edema. Blood cultures pending. IMPRESSION: A 67-year-old with septic shock, encephalopathy, respiratory failure, atrial flutter, suspected aspiration complicating chronic obstructive pulmonary disease, obstructive sleep apnea and asthma along with congestive heart failure. Also, has right lower extremity venous stasis ulcer and cellulitis. He has leukocytosis with left shift and lactic acidosis compensated. 1. Deep venous thrombosis, on anticoagulation. 2. Previous stroke with right hemiparesis. 3. Morbid obesity. RECOMMENDATION: We will continue full support ICU, short of intubation and mechanical ventilation. The patient is DNR. Continue full resuscitative measures on Cardizem drip to control his heart rate. Will need fluid and vasopressor support. Continue IV antibiotic therapy pending culture results. Would like to have a sputum culture. Try to control his anasarca. I have discussed in detail with nursing staff and pulmonary consutant at the bedside. [place] here is poor considering his comorbidities. We will adjust his antibiotics pending culture results. Monitor renal function. <ELECTRONICALLY SIGNED> By: Jose Antonio Stephens MD 03/05/18 0824 1853 2319 Jose Antonio Stephens MD /nt
--- NOTE | ~2018-03-04 | EKG ---
[place] [address] [facility] [email or web address] [address] ELECTROCARDIOGRAM REPORT Name: OTF PEÑA Room #: 247-P ADM IN M.R.#: [id number] Admission: 03/04/18 Attend Phys: Quinten Ko MD Discharge: Date of : 52 Report #: [id number] THIS REPORT FOR: //name// [facility] Test Date: 2018-03-05 Test Time: 07:37:53 Pat Name: OTF PEÑA Department: Room: 247 P Gender: M Animal Doctor: STANLEY : 1950 Requested By: Flaca Durant Order Number: [id number] MD: Alexander West Measurements Intervals [place] Rate: 106 P: -22 IN: 124 QRS: -58 QRSD: 131 T: 137 QT: 298 QTc: 396 Interpretive Statements Sinus tachycardia RBBB and LAFB Nonspecific ST and T wave abnormality Compared to ECG 03/04/2018 11:39:46 Heart rate has slowed QRS duration shorter Electronically Signed On 03-05-2018 8:03:01 [employer]PERINTEND[employer] by Alexander West [email or web address] <ELECTRONICALLY SIGNED> By: Alexander West MD, [facility] 03/05/18 0803 0737 0737 Alexander West MD, [facility] /EPI
[~2018-03-04 11:33] MED LIST changes: +CARTIA XT180 M1 PO
[2018-03-04 11:50] LABS: BE(vivo) 0 mmol/L (-2 to +3); HCO3 24.8 mmol/L (22.0-26.0); PO2 132.8 mmHg (80.0-100.0); sO2 98.7 % (92.0-98.0)
[2018-03-04 12:10] LABS: HEMATOCRIT 41.6 % (42.0-52.0); HEMOGLOBIN 13.7 gm/dL (14.0-18.0); MCHC 32.8 g/dL (28.0-37.0); MCV 94.4 fL (80.0-100.0); PLATELET COUNT 209 thou/uL (150-400); RBC 4.41 mil/uL (4.50-6.00); RDW 19.3 % (10.5-14.5)
[2018-03-04 12:13] LABS: ANION GAP 5 mmol/L (7-16); BUN 26 mg/dL (7-18); CALCIUM 9.8 mg/dL (8.5-10.1); CHLORIDE 100 mmol/L (98-107); CO2 33 mmol/L (21-32); CREATININE 0.6 mg/dL (0.7-1.3); GLUCOSE 165 mg/dL (74-106); POTASSIUM 4.8 mmol/L (3.5-5.1); SODIUM 138 mmol/L (136-145)
[2018-03-04 12:22] LABS: ALBUMIN 3.6 g/dL (3.4-5.0); SGOT 94 U/L (15-37); SGPT 147 U/L (30-65); TOTAL BILIRUBIN 1.2 mg/dL (<0.1-1.0); TOTAL PROTEIN 6.8 g/dL (6.4-8.2); TROPONIN-I <0.06 ng/mL (<0.06)
[2018-03-04 12:52] LABS: ABSOLUTE NEUTROPHILS 21.2 thou/uL (1.4-8.2); METAMYELOCYTES 1 %; MYELOCYTES 1 %
[2018-03-04 12:53] LABS: ANISOCYTOSIS 2+
[2018-03-04 15:26] LABS: HEMATOCRIT 42.2 % (42.0-52.0); HEMOGLOBIN 13.6 gm/dL (14.0-18.0); MCH 32.8 pg (26.0-34.0); MCHC 32.2 g/dL (28.0-37.0); RBC 4.15 mil/uL (4.50-6.00); RDW 14.5 % (10.5-14.5)
[2018-03-04 15:28] LABS: MCV 101.8 fL (80.0-100.0)
[2018-03-04 15:32] LABS: WBC 7.8 thou/uL (4.0-11.0)
[2018-03-04 15:39] LABS: BE(vivo) 1.1 mmol/L (-2 to +3); HCO3 25.6 mmol/L (22.0-26.0); PCO2 40.4 mmHg (35.0-45.0); PO2 87.4 mmHg (80.0-100.0); sO2 96.8 % (92.0-98.0)
[2018-03-04 15:49] LABS: APTT 32.9 Seconds (24.5-32.8); PROTIME 10.4 Seconds (9.3-11.4)
[2018-03-04 16:53] LABS: HEMATOCRIT 43.7 % (42.0-52.0); HEMOGLOBIN 14.3 gm/dL (14.0-18.0); MCH 30.9 pg (26.0-34.0); MCHC 32.7 g/dL (28.0-37.0); PLATELET COUNT 189 thou/uL (150-400); RBC 4.62 mil/uL (4.50-6.00); RDW 18.7 % (10.5-14.5); WBC 16.6 thou/uL (4.0-11.0)
[2018-03-04 16:54] LABS: MCV 94.5 fL (80.0-100.0)
[2018-03-04 17:44] LABS: ABSOLUTE NEUTROPHILS 14.6 thou/uL (1.4-8.2); PLATELET ESTIMATE NORMAL
[2018-03-04 17:53] LABS: URINE BILIRUBIN NEGATIVE (Negative); URINE BLOOD 3+ (Negative); URINE CLARITY CLEAR; URINE COLOR YELLOW; URINE GLUCOSE-RANDOM* NEGATIVE (Negative); URINE KETONES NEGATIVE (Negative); URINE LEUKOCYTES-REFLEX NEGATIVE (Negative); URINE NITRITE-REFLEX NEGATIVE (Negative); URINE PROTEIN (DIPSTICK) NEGATIVE (Negative); URINE SPECIFIC GRAVITY 1.025 (1.005-1.035); URINE UROBILINOGEN 0.2 E.U./dl (0.2-1.0)
[2018-03-04 17:55] LABS: BACTERIA-REFLEX None Seen /HPF (None Seen); CASTS None Seen /LPF (None Seen); CRYSTALS None Seen /LPF (None Seen); SQUAMOUS None Seen /LPF (0-3); URINE RBC >20 Many /HPF (0-2); URINE WBC-REFLEX None Seen /HPF (0-5)
[2018-03-04] MEDS ORDERED: COMBIVENT INH (18:40)
[2018-03-04] MEDS ORDERED: DIFLUCAN150 M1 PO (18:41)
[2018-03-04] MEDS ORDERED: LIDODERM1 EACH TRANSDERM (18:42)
[2018-03-04] MEDS ORDERED: HYDROCODON-ACE1 EAC5 PO (18:42)
[2018-03-04] MEDS ORDERED: MELATONIN3 MG PO (18:42)
[2018-03-04] MEDS ORDERED: ONDANSETRON HCL4 M2 PO (18:44)
[2018-03-04] MEDS ORDERED: VOLTAREN GEL 1100 G2 TOP (18:44)
[2018-03-04 19:08] LABS: BE(vivo) -0.3 mmol/L (-2 to +3); PCO2 33.9 mmHg (35.0-45.0); PO2 70.7 mmHg (80.0-100.0)
[2018-03-04 19:28] LABS: POTASSIUM 4.2 mmol/L (3.5-5.1)
[2018-03-04 19:31] LABS: CREATININE 1.7 mg/dL (0.7-1.3)
[2018-03-04 19:34] LABS: ALBUMIN 2.8 g/dL (3.4-5.0); TOTAL BILIRUBIN 1.3 mg/dL (<0.1-1.0); TOTAL PROTEIN 5.6 g/dL (6.4-8.2)
[2018-03-05 00:01] VITALS: BP 110/62
[2018-03-05 00:20] LABS: HEMATOCRIT 39.4 % (42.0-52.0); HEMOGLOBIN 13.1 gm/dL (14.0-18.0)
[2018-03-05 02:09] VITALS: BP 106/58
[2018-03-05 04:00] VITALS: BP 104/59
[2018-03-05 05:18] LABS: BE(vivo) -6.4 mmol/L (-2 to +3); HCO3 17.8 mmol/L (22.0-26.0); PCO2 31.8 mmHg (35.0-45.0); PO2 109.5 mmHg (80.0-100.0); pH 7.367 (7.360-7.450); sO2 97.9 % (92.0-98.0)
[2018-03-05 05:24] LABS: HEMATOCRIT 38.6 % (42.0-52.0); HEMOGLOBIN 12.5 gm/dL (14.0-18.0); MCH 30.9 pg (26.0-34.0); MCHC 32.4 g/dL (28.0-37.0); MCV 95.2 fL (80.0-100.0); PLATELET COUNT 180 thou/uL (150-400); RBC 4.05 mil/uL (4.50-6.00); RDW 18.6 % (10.5-14.5); WBC 14.5 thou/uL (4.0-11.0)
[2018-03-05 06:01] LABS: ALBUMIN 2.9 g/dL (3.4-5.0); CALCIUM 8.1 mg/dL (8.5-10.1); CREATININE 2.3 mg/dL (0.7-1.3); POTASSIUM 4.4 mmol/L (3.5-5.1); TOTAL BILIRUBIN 1.4 mg/dL (<0.1-1.0); TOTAL PROTEIN 5.8 g/dL (6.4-8.2)
[2018-03-05 08:01] VITALS: BP 108/60
[2018-03-05 09:18] LABS: ABSOLUTE NEUTROPHILS 11.2 thou/uL (1.4-8.2); METAMYELOCYTES 4 %
[2018-03-05 09:21] LABS: ANISOCYTOSIS 2+; NUCLEATED RBCS 2 /100WBC; POLYCHROMASIA OCCASIONAL
== END 2018-03-05 09:10 | DRG 871 ==
LOC: ER 11:33 → EROBS 12:43 → ICU 12:43
PROVIDERS: Pediatrics; Physician Assistant; Specialist
DX: A41.9 Sepsis, unspecified organism (principal); J69.0 Pneumonitis due to inhalation of food and vomit; R65.21 Severe sepsis with septic shock; J96.21 Acute and chronic respiratory failure with hypoxia; J96.22 Acute and chronic respiratory failure with hypercapnia; G92 Toxic encephalopathy; I50.33 Acute on chronic diastolic (congestive) heart failure; Z68.43 Body mass index [BMI] 50.0-59.9, adult; I48.92 Unspecified atrial flutter; I69.351 Hemiplegia and hemiparesis following cerebral infarction affecting right dominant side; L03.115 Cellulitis of right lower limb; J44.1 Chronic obstructive pulmonary disease with (acute) exacerbation; I82.401 Acute embolism and thrombosis of unspecified deep veins of right lower extremity; E66.2 Morbid (severe) obesity with alveolar hypoventilation; L97.819 Non-pressure chronic ulcer of other part of right lower leg with unspecified severity; Z66 Do not resuscitate; I46.9 Cardiac arrest, cause unspecified; E11.9 Type 2 diabetes mellitus without complications; I11.0 Hypertensive heart disease with heart failure; M10.9 Gout, unspecified; I87.2 Venous insufficiency (chronic) (peripheral); I48.91 Unspecified atrial fibrillation; G47.33 Obstructive sleep apnea (adult) (pediatric); E78.00 Pure hypercholesterolemia, unspecified; M19.90 Unspecified osteoarthritis, unspecified site; Z99.81 Dependence on supplemental oxygen; Z86.718 Personal history of other venous thrombosis and embolism; Z86.711 Personal history of pulmonary embolism; Z87.01 Personal history of pneumonia (recurrent); Z90.49 Acquired absence of other specified parts of digestive tract; Z98.42 Cataract extraction status, left eye; Z87.81 Personal history of (healed) traumatic fracture; Z79.899 Other long term (current) drug therapy; S30.810A Abrasion of lower back and pelvis, initial encounter; X58.XXXA Exposure to other specified factors, initial encounter; Y93.89 Activity, other specified; Y92.89 Other specified places as the place of occurrence of the external cause; Y99.8 Other external cause status
CPT/HCPCS: 10078; 10196